=== PATIENT | female | born 1970 | race Caucasian/White ===

== ENCOUNTER 2021-01-03 22:44 | Emergency (ER) | payer OTHER, SELFPAY ==
[2021-01-03 22:52] VITALS: PULSE 63; RESP 18; TEMP 36.4; O2SAT 96; BMI 43.2
[2021-01-03 23:11] LABS: Appearance Urine HAZY; Color Urine DK YELLOW; Glucose Urine UA 100 MG/DL (NEG); Leukocyte Esterase Urine 1+ (NEG); Nitrite Urine POS (NEG); UACC Culture Trigger YES; Urine Blood 3+ (NEG); Urine Ketones NEG (NEG); Urine Protein 2+ MG/DL (NEG-TRACE)
--- NOTE | 2021-01-03 23:17 | ED.FEMALEGU ---
HPI - Female Genitourinary General Chief complaint: Urogenital-Female Stated complaint: uti Time Seen by Provider: 01/03/21 23:17 Source: patient Mode of arrival: ambulatory Limitations: no limitations History of Present Illness HPI Narrative: 50-year-old female came in for evaluation of possible UTI. Patient been having dysuria, frequency urination for few hours, no fever, no chills, no abdominal or back pain. Related Data Previous Rx's Medication Instructions Recorded nitrofurantoin 100 mg PO Q12H 7 Days #14 cap 01/03/21 monohydrate/macrocrystals 100 mg capsule (Macrobid) phenazopyridine 200 mg tablet 200 mg PO TID #6 tab 01/03/21 (Pyridium) Allergies Allergy/AdvReac Type Severity Reaction Status Date / Time No Known Allergies Allergy Verified 01/03/21 22:58 [No Known Allergies*] Review of Systems Review of Systems: all other systems are reviewed and are negative Constitutional: Reports as per HPI and Reports no additional constitutional complaints Eyes: Reports as per HPI and Reports no additional eye complaints Reports system reviewed and no additional complaints, except as documented Cardiovascular: Reports as per HPI and Reports no additional cardiovascular complaints Respiratory: Reports as per HPI and Reports no additional respiratory complaints Gastrointestinal: Reports as per HPI and Reports no additional gastrointestinal complaints Genitourinary: Reports no additional female genitourinary complaints Musculoskeletal: Reports no additional musculoskeletal complaints Skin/Breast: Reports system reviewed and no additional complaints, except as docu Psychiatric: Reports no additional psychiatric complaints Endocrine: Reports no additional endocrine complaints Hematologic/Lymphatic: Reports no additional hematologic/lymphatic complaints Allergic/Immunologic: Reports no additional allergic/immunologic complaints Reports system reviewed and no additional complaints, except as documented and Reports Abnormal speech present [facility] Social History Social History Advance Directives: No Patient : No Physical Exam Vital Signs: Vital Signs: Last Vital Signs Temp 97.8 F 01/03/21 23:21 Pulse 68 01/03/21 23:21 Resp 20 01/03/21 23:21 BP 176/89 H 01/03/21 23:21 Pulse Ox 97 01/03/21 23:21 Body Mass Index 43.2 vital signs have been reviewed as appeared to be correct. Blood pressure normal. Heart rate normal. Respiration rate normal. Temperature normal. Oxygen saturation normal. Appearance: Alert. Oriented X3. No acute distress. Head: Normal external exam. Normocephalic. Atraumatic. No Núñez signs noted. No raccoon eyes noted Eyes: PERRLA. EOMI. Conjunctiva and sclera normal. Eyelids normal. ENT: TM's Normal. Pharynx normal. Uvula midline. Moist mucous membranes. No trismus noted. No drooling noted. No muffled voice noted. Neck: Normal inspection. Neck supple. FROM. No adenopathy. Thyroid Normal. No meningeal signs. No neck mass noted. CVS: Normal heart rate and rhythm. Heart sound normal. No murmurs noted. Pulses normal throughout. Respiratory: No respiratory distress. Painless inspiration. Breath sounds normal. No wheezes/rales/rhonchi noted. Chest nontender. No accessory muscle usage noted or decreased air movement noted. Abdomen: Soft and nontender. Bowel sounds normal in all 4 quadrants. No distention noted. No organomegaly noted. No visible injury noted. Back: No CVA tenderness. Full range of motion noted. Skin: Skin warm and dry. Normal skin color. Normal skin turgor. No rashes/lesions/lacerations noted. Extremities: No lower extremity edema. Extremities exhibit normal range of motion. Extremities nontender. Neuro: Oriented X 3. Cranial nerve exam: II-XII are grossly intact No motor deficit. No sensory deficit. Reflexes normal. Course Course Course Narrative: assessment and plan. UTI, with no complication. Will start the patient on a, encouraged to drink plenty of fluids, 1 dose of Diflucan because the patient is susceptible for yeast infection with antibiotic, Pyridium. MDM - Female Genitourinary Lab Data Attestation: I reviewed the patient's lab results. Labs: Lab Results 01/03/21 Range/Units 23:03 Urine Color DK YELLOW Urine Appearance HAZY Urine pH 6.0 (5.0-8.0) Ur Specific [place] 1.010 (1.005-1.025) Urine Protein 2+ H (NEG-TRACE) MG/DL Urine Glucose (UA) 100 H (NEG) MG/DL Urine Ketones NEG (NEG) MG/DL Urine Blood 3+ H (NEG) Urine Nitrite POS H (NEG) Ur Leukocyte Esterase 1+ H (NEG) Urine RBC 15-29 H (0) /HPF Urine WBC 5-9 H (0-4) /HPF Ur Squamous Epith Cells 1+ /LPF Ur Renal Epithelial Cell TRACE /LPF Urine Bacteria TRACE /LPF Urine Mucus 1+ /LPF Discharge Plan Discharge Clinical Impression: Urinary tract infection Patient Disposition: Home, Self-Care Instructions: Urinary Tract Infection in Women (ED) Additional Instructions: drink plenty fluids Prescriptions: New nitrofurantoin monohyd/m-cryst [Macrobid] 100 mg capsule 100 mg PO Q12H 7 Days Qty: 14 RF: 0 phenazopyridine [Pyridium] 200 mg tablet 200 mg PO TID Qty: 6 RF: 0 Referrals: Tenisha Lofton NP [Primary Care Provider] - 2 days
[2021-01-03 23:19] LABS: Mucus Urine 1+ /LPF; Renal Epithelial Cells Urine TRACE /LPF; Squamous Epithelial Cell Urine 1+ /LPF
[2021-01-03 23:20] LABS: Bacteria Urine TRACE /LPF
[2021-01-03 23:21] VITALS: BP 176/89; PULSE 68; RESP 20; TEMP 36.6; O2SAT 97
[2021-01-03] MEDS: Fluconazole 150 MG TABLET PO (23:47)
[2021-01-03] MEDS: Phenazopyridine HCL 200 MG TABLET PO (23:47)
[2021-01-03] MEDS: Nitrofurantoin Monohyd/M-Cryst 100 MG CAPSULE PO (23:47)
== END 2021-01-03 23:58 | disposition home or self-care (01) ==
PROVIDERS: Emergency Provider Emergency Medicine; PCP Registered Nurse
DX: N39.0 Urinary tract infection, site not specified (principal)
CPT/HCPCS: 81001; 87086; 87088; 87186; 99283; 99284

== ENCOUNTER 2021-07-06 19:23 | Emergency (ER) | payer OTHER, SELFPAY ==
[2021-07-06 20:11] VITALS: BP 166/98; PULSE 67; RESP 20; TEMP 36; O2SAT 99; BMI 43.2
[2021-07-06 20:11] LABS: Appearance Urine CLEAR; Color Urine YELLOW; Glucose Urine UA NEG (NEG); Leukocyte Esterase Urine 1+ (NEG); Nitrite Urine POS (NEG); PH 5.5 (5.0-8.0); Specific Gravity - Urine <= 1.005 (1.005-1.025); UACC Culture Trigger YES; Urine Blood 1+ (NEG); Urine Ketones NEG (NEG); Urine Protein NEG (NEG-TRACE)
[2021-07-06 20:20] LABS: Bacteria Urine 1+ /LPF; RBC Urine 0-2 /HPF (0); Squamous Epithelial Cell Urine 1+ /LPF; WBC Urine 0-2 /HPF (0-4)
--- NOTE | 2021-07-06 21:55 | ED_ITS ---
HPI - Female Genitourinary General Chief complaint: Urogenital-Female Stated complaint: UTI Source: patient Mode of arrival: ambulatory Limitations: no limitations History of Present Illness HPI Narrative: 51-year-old female presents with dysuria and frequency that started about 13:00 today. Patient does have significant bladder spasms and has been treated by a specialist in the past. She did take some diazepam earlier today with poor effect. Patient does not report any vaginal discharge, fevers, chills or any other concerning symptoms. MD elicited complaint: dysuria, UTI and difficulty urinating Pertinent past history: recurrent UTIs Onset (ago): day(s) (1) Location of symptoms: urethra Severity: moderate Female Urogenital Radiation: Non-Radiating Severity scale (1-10): 8 Quality of pain: burning Consistency: intermittent Vaginal discharge: none Vaginal bleeding: none Urinary symptoms: Dysuria, Urgency and Frequency Exacerbating factors: urination Relieving factors: none Associated symptoms: denies other symptoms Treatment prior to arrival: other (Benzo diazepam) Sexual activity: Yes Related Data Previous Rx's Medication Instructions Recorded nitrofurantoin 100 mg PO Q12H 7 Days #14 cap 01/03/21 monohydrate/macrocrystals 100 mg capsule (Macrobid) phenazopyridine 200 mg tablet 200 mg PO TID #6 tab 01/03/21 (Pyridium) nitrofurantoin 100 mg PO Q12H 7 Days #14 cap 07/06/21 monohydrate/macrocrystals 100 mg capsule (Macrobid) phenazopyridine 200 mg tablet 200 mg PO TID PRN #10 tab 07/06/21 (Pyridium) Allergies Allergy/AdvReac Type Severity Reaction Status Date / Time No Known Allergies Allergy Verified 01/03/21 22:58 [No Known Allergies*] Review of Systems Review of Systems: Constitutional: No Fever, No Chills ENT/Mouth: No Ear Pain, No Hoarseness, No sore throat Eyes: No Eye Pain, No Swelling, No Redness, No Foreign Body Cardiovascular: No Chest Pain, No SOB Respiratory: No Cough, No Dyspnea Gastrointestinal: No Nausea, No Vomiting, No Diarrhea, No abdominal Pain Genitourinary: Positive Dysuria, positive frequency, No Hematuria Musculoskeletal: No joint pain, No Myalgias, No Joint Swelling Skin: No Skin lacerations, No rash Neuro: No Weakness, No Numbness, No Paresthesias, No Loss of Consciousness, No Dizziness, No Headache Psych: No Anxiety/Panic, No Depression Heme/Lymph: no easy bruising, no Lymphadenopathy Endocrine: No Polyuria, No Polydipsia Yes all other systems are reviewed and are negative PEND[facility] S[facility] TO [facility] Past Medical History Attestation statement: The following information was validated with the patient. Source: old records reviewed Social History Social History Advance Directives: No Advance Directives Information Provided: Yes Physical Exam Vital Signs: Vital Signs: Last Vital Signs Temp 96.8 F 07/06/21 20:11 Pulse 67 07/06/21 20:11 Resp 20 07/06/21 20:11 BP 166/98 H 07/06/21 20:11 Pulse Ox 99 07/06/21 20:11 BMI result Body Mass Index 43.2 Appearance: Alert. Oriented X3. No acute distress. Eyes: Pupils equal, round and reactive to light. ENT: Pharynx normal. Neck: Normal inspection. Neck supple. CVS: Normal heart rate and rhythm. Pulses normal. Respiratory: No respiratory distress. Breath sounds normal. Abdomen: Soft and nontender. Skin: Skin warm and dry. Normal skin color. Normal skin turgor. Extremities: No lower extremity edema. Gait well-balanced well coordinated. Neuro: No motor deficit. No sensory deficit. Cranial nerves 2-12 intact. Course Course Course Narrative: 51-year-old female presents with urinary symptoms for approximately 1 day. Patient appears anxious and is tearful and states that she has been in the bathroom all day. She does have a history of recurrent UTIs with significant bladder spasms. She was seen by a specialist and was treated with benzo diazepam for bladder spasms. She was treated back in December with Macrobid with good effect. Patient is afebrile, appears nontoxic, and has vital signs that are stable and within normal limits. Urinalysis indicates UTI, will treat with Macrobid, Pyridium and give 1 dose of Valium 2 mg p.o. prior to her discharge. Patient verbalized understanding of and agrees to plan of care to discharge home. Verbalized understanding of signs and symptoms indicating need for emergent intervention MDM - Female Genitourinary Differential Diagnosis Differential diagnosis: Likely urinary tract infection, cervicitis and cystitis Medical Records Attestation: I reviewed the patient's medical records. Lab Data Attestation: I reviewed the patient's lab results. Labs: Lab Results 07/06/21 Range/Units 20:05 Urine Color YELLOW Urine Appearance CLEAR Urine pH 5.5 (5.0-8.0) Ur Specific [place] <= 1.005 (1.005-1.025) Urine Protein NEG (NEG-TRACE) MG/DL Urine Glucose (UA) NEG (NEG) MG/DL Urine Ketones NEG (NEG) MG/DL Urine Blood 1+ H (NEG) Urine Nitrite POS H (NEG) Ur Leukocyte Esterase 1+ H (NEG) Urine RBC 0-2 (0) /HPF Urine WBC 0-2 (0-4) /HPF Ur Squamous Epith Cells 1+ /LPF Urine Bacteria 1+ /LPF Discharge Plan Discharge Clinical Impression: Urinary tract infection Patient Disposition: Home, Self-Care Instructions: Acute Urinary Retention in Women (ED) Additional Instructions: You were evaluated for urinary symptoms. Urinalysis is positive for UTI. Please take Macrobid 100 mg every 12 hours for the next 7 days. Take Pyridium 200 mg every 8 hours as needed for bladder pain and spasms. This medication will turn your urine bright orange. This is a normal side effect of this medication. Drink plenty of fluids. Follow-up with primary care physician. Thank you for choosing this emergency department for evaluation. Please follow-up with primary care physician as needed. Return to the emergency department for any new, concerning, or worsening symptoms. Prescriptions: New nitrofurantoin monohyd/m-cryst [Macrobid] 100 mg capsule 100 mg PO Q12H 7 Days Qty: 14 0RF Rx Instructions: must administer with a meal/food phenazopyridine [Pyridium] 200 mg tablet 200 mg PO TID PRN (Reason: pain) Qty: 10 0RF No Action nitrofurantoin monohyd/m-cryst [Macrobid] 100 mg capsule 100 mg PO Q12H 7 Days Qty: 14 0RF Rx Instructions: must administer with a meal/food phenazopyridine [Pyridium] 200 mg tablet 200 mg PO TID Qty: 6 0RF Interventions: ED Discharge Assessment Last Done: 07/06/21 22:46 Discharge Date/Time: 07/06/21 22:48
[2021-07-06] MEDS: diazePAM 2 MG TABLET PO (22:34)
[2021-07-06] MEDS: Phenazopyridine HCL 200 MG TABLET PO (22:34)
[2021-07-06] MEDS: Nitrofurantoin Monohyd/M-Cryst 100 MG CAPSULE PO (22:34)
== END 2021-07-06 22:48 | disposition home or self-care (01) ==
PROVIDERS: Emergency Provider Internal Medicine; PCP Registered Nurse
DX: N39.0 Urinary tract infection, site not specified (principal); N32.89 Other specified disorders of bladder; Z87.440 Personal history of urinary (tract) infections
CPT/HCPCS: 81001; 87086; 87088; 87186; 99283

== ENCOUNTER 2021-08-05 16:16 | Emergency (ER) | payer OTHER, SELFPAY ==
[2021-08-05 16:23] VITALS: BP 180/89; PULSE 79; RESP 16; TEMP 36.4; O2SAT 99; BMI 43.2
[2021-08-05 16:44] LABS: Appearance Urine CLEAR; Color Urine DK YELLOW; Glucose Urine UA 100 MG/DL (NEG); Leukocyte Esterase Urine 1+ (NEG); Nitrite Urine POS (NEG); Specific Gravity - Urine <= 1.005 (1.005-1.025); UACC Culture Trigger YES; Urine Blood TRACE (NEG); Urine Ketones NEG (NEG); Urine Protein TRACE MG/DL (NEG-TRACE)
[2021-08-05 16:50] LABS: Bacteria Urine 1+ /LPF; RBC Urine 0 /HPF (0); Squamous Epithelial Cell Urine 1+ /LPF; UACC CULT YES; WBC Urine 0-2 /HPF (0-4)
--- NOTE | 2021-08-05 18:45 | ED.FEMALEGU ---
HPI - Female Genitourinary General Chief complaint: Urogenital-Female Stated complaint: UTI Time Seen by Provider: 08/05/21 18:35 Source: patient Mode of arrival: ambulatory History of Present Illness HPI Narrative: 51-year-old female with a past medical history of bladder spasms, UTI recently presenting to the ED complaining of dysuria and urinary frequency since this morning. Patient was seen and treated in the ED on 07/06 for similar symptoms, finished course of Macrobid with symptomatic improvement/relief. Denies fever, chills, nausea, vomiting, abdominal pain, flank pain MD elicited complaint: dysuria and UTI Related Data Previous Rx's Medication Instructions Recorded nitrofurantoin 100 mg PO Q12H 7 days #14 caps 01/03/21 monohydrate/macrocrystals 100 mg capsule (Macrobid) phenazopyridine 200 mg tablet 200 mg PO TID 6 doses #6 tabs 01/03/21 (Pyridium) nitrofurantoin 100 mg PO Q12H 7 days #14 caps 07/06/21 monohydrate/macrocrystals 100 mg capsule (Macrobid) phenazopyridine 200 mg tablet 200 mg PO TID PRN pain #10 tabs 07/06/21 (Pyridium) cefuroxime axetil 250 mg tablet 250 mg PO BID 7 days #14 tabs 08/05/21 phenazopyridine 200 mg tablet 200 mg PO TID PRN pain 6 doses #5 08/05/21 (Pyridium) tabs Allergies Allergy/AdvReac Type Severity Reaction Status Date / Time No Known Allergies Allergy Verified 01/03/21 22:58 [No Known Allergies*] Review of Systems Review of Systems: Constitutional: No Weight loss, No Fever, No Chills ENT/Mouth: No Ear Pain, No Nasal Congestion, No Sinus Pain, No Hoarseness, No sore throat, No Rhinorrhea, No Swallowing Difficulty Cardiovascular: No Chest Pain, No SOB Respiratory: No Cough, No Sputum, No Wheezing Gastrointestinal: No Nausea, No Vomiting, No Diarrhea, No Constipation, No Abdominal pain Genitourinary: + Dysuria, + Urinary Frequency, No Hematuria, No Urinary Incontinence/retention, No Urgency, No Flank Pain Musculoskeletal: No joint pain, No Myalgias, No Joint Swelling Skin: No Skin Lesions, No rash Neuro: No Weakness, No Numbness, No Paresthesias Yes all other systems are reviewed and are negative [facility] Past Medical History Attestation statement: The following information was validated with the patient. Social History Social History Advance Directives: No Advance Directives Information Provided: No Physical Exam Vital Signs: Vital Signs: Last Vital Signs Temp 97.5 F 08/05/21 16:23 Pulse 79 08/05/21 16:23 Resp 16 08/05/21 16:23 BP 180/89 H 08/05/21 16:23 Pulse Ox 99 08/05/21 16:23 O2 Del Method 08/05/21 16:23 BMI result Body Mass Index 43.2 Const: General: cooperative, healthy appearing and no acute distress Orientation/consciousness: patient oriented x3 Limitations: no limitations HEENT: Head: Yes normal to inspection and Yes atraumatic Ears: hearing grossly normal bilaterally General nose exam: Normal external nose present Face and sinus: Yes normal facial exam Eyes: General: appearance normal, both eyes and all related structures EOM: EOMs intact bilaterally Neck: Neck: Yes normal visual inspection and Yes no meningeal signs Resp: Effort & Inspection: normal respiratory effort and no respiratory distress Cardio: Rate: regular rate Heart sounds: S1 normal heart sound present and S2 normal heart sound present GI: Inspection: Yes normal to inspection Palpation (GI): Soft to palpation, nontender, no guarding and not rigid : General: Yes no CVA tenderness Back/Spine/Pelvis: Back: no CVA tenderness Skin: Rashes: no rashes Wounds: no wounds Neuro: General: patient oriented x3, tone normal and no meningeal signs Gait exam (Neuro): Normal gait present Extrem: General: Yes normal to inspection Course Course Course Narrative: -UA with positive nitrates and leuk esterase. >Due to patient's symptoms will treat for UTI, had good relief with Macrobid in the past however due to recent treatment will try Ceftin 250 b.i.d. Patient received dose of Ceftin and pyridium in the ED > discussed with patient she needs to follow-up with her urogynecologist MDM - Female Genitourinary MDM Narrative Medical decision making narrative: 51-year-old female with a past medical history of bladder spasms, UTI recently presenting to the ED complaining of dysuria and urinary frequency since this morning. On exam vital signs stable, NAD, abdomen soft/nontender, no CVA tenderness. Concern for UTI. Low suspicion for pyelonephritis/renal stone or intra-abdominal pathology Plan: UA Differential Diagnosis Differential diagnosis: Likely urinary tract infection Medical Records Attestation: I reviewed the patient's medical records. Lab Data Attestation: I reviewed the patient's lab results. Labs: Lab Results 08/05/21 Range/Units 16:35 Urine Color DK YELLOW Urine Appearance CLEAR Urine pH 5.0 (5.0-8.0) Ur Specific [place] <= 1.005 (1.005-1.025) Urine Protein TRACE (NEG-TRACE) MG/DL Urine Glucose (UA) 100 H (NEG) MG/DL Urine Ketones NEG (NEG) MG/DL Urine Blood TRACE (NEG) Urine Nitrite POS H (NEG) Ur Leukocyte Esterase 1+ H (NEG) Urine RBC 0 (0) /HPF Urine WBC 0-2 (0-4) /HPF Ur Squamous Epith Cells 1+ /LPF Urine Bacteria 1+ /LPF Discharge Plan Discharge Clinical Impression: Urinary tract infection Patient Disposition: Home, Self-Care Instructions: Urinary Tract Infection in Women (ED) Additional Instructions: You have a urinary tract infection. Ceftin is an antibiotic please take as prescribed. Pyridium will help with urinary discomfort. Please follow-up with your urologist. If symptoms persist or worsen you develop back pain, fever, chills, abdominal pain or nausea return to the ED Prescriptions: New phenazopyridine [Pyridium] 200 mg tablet 200 mg PO TID PRN (Reason: pain) Qty: 5 0RF cefuroxime axetil 250 mg tablet 250 mg PO BID 7 Days Qty: 14 0RF No Action nitrofurantoin monohyd/m-cryst [Macrobid] 100 mg capsule 100 mg PO Q12H 7 Days Qty: 14 0RF Rx Instructions: must administer with a meal/food phenazopyridine [Pyridium] 200 mg tablet 200 mg PO TID Qty: 6 0RF nitrofurantoin monohyd/m-cryst [Macrobid] 100 mg capsule 100 mg PO Q12H 7 Days Qty: 14 0RF Rx Instructions: must administer with a meal/food phenazopyridine [Pyridium] 200 mg tablet 200 mg PO TID PRN (Reason: pain) Qty: 10 0RF Referrals: Riley Magallanes MD [Physician] - Tenisha Lofton NP [Primary Care Provider] -
[2021-08-05] MEDS: Phenazopyridine HCL 200 MG TABLET PO (18:57)
== END 2021-08-05 19:19 | disposition home or self-care (01) ==
PROVIDERS: Emergency Provider Internal Medicine; PCP Registered Nurse
DX: N39.0 Urinary tract infection, site not specified (principal); Z79.899 Other long term (current) drug therapy; Z20.822 Contact with and (suspected) exposure to COVID-19
CPT/HCPCS: 81001; 87086; 87088; 87186; 99283

== ENCOUNTER 2021-11-26 13:36 | Outpatient (REF) | payer OTHER, SELFPAY ==
[2021-11-26 14:04] LABS: COVID-19 Test Negative (Negative)
== END 2021-11-26 13:37 | disposition home or self-care (01) ==
LOC: HO.LAB 13:36
PROVIDERS: Visit Provider Internal Medicine
DX: Z20.822 Contact with and (suspected) exposure to COVID-19 (principal)
CPT/HCPCS: 87635; C9803

== ENCOUNTER 2024-01-22 04:33 | Emergency (ER) | payer OTHER, SELFPAY ==
[2024-01-22 04:34] VITALS: BP 178/90; PULSE 66; RESP 20; TEMP 36.6; O2SAT 97; BMI 49.2
[2024-01-22 05:56] LABS: Appearance Urine Cloudy; Color Urine Orange; Glucose Urine UA Negative (Negative); Leukocyte Esterase Urine Large (3+) (Negative); Nitrite Urine Positive (Negative); PH 5.5 (5.0-9.0); UMIC TRIGGER UACC YES; Urine Blood Moderate (2+) (Negative); Urine Ketones Negative (Negative); Urine Protein Trace mg/dL (Neg-Trace)
[2024-01-22 05:57] LABS: Bacteria Urine Trace (None Seen); Hyaline Casts Urine 0-2 /LPF (0-2); UACC Culture Trigger YES; WBC Urine >50 /HPF (0-5)
[2024-01-22 06:12] VITALS: BP 183/61; PULSE 83; RESP 16; TEMP 36.4; O2SAT 96
--- NOTE | 2024-01-22 07:07 | ED_ITS ---
HPI - Female Genitourinary General Chief complaint: Urogenital-Female Stated complaint: UTI Time Seen by Provider: 01/22/24 07:07 Source: patient Mode of arrival: ambulatory Limitations: no limitations History of Present Illness ED Provider: Sydney Kwong PA-C HPI Narrative: Patient is a 53 year old assigned female at with a history of frequent UTIs presenting to the emergency department today with bladder spasm and increased urinary frequency. Patient states that since 314 she has felt like she needed to urinate more and is having bladder spasms. Patient denies any dizziness, lightheadedness, nausea, vomiting, fever, chills, blurry vision, double vision, loss of vision, chest pain, difficulty breathing, shortness of breath, back pain, night sweats, pain with urination, blood in her urine or stool, syncope or a near syncopal episode, recent trauma or falls, bowel incontinence, bladder incontinence, or any other complaints at this time. Exacerbating factors: none Relieving factors: none Associated symptoms: abdominal pain (bladder spasms) Related Data Previous Rx's ?Medication ?Instructions ?Recorded nitrofurantoin 100 mg PO Q12H 7 days #14 caps 01/03/21 monohydrate/macrocrystals 100 mg capsule (Macrobid) phenazopyridine 200 mg tablet 200 mg PO TID 6 doses #6 tabs 01/03/21 (Pyridium) nitrofurantoin 100 mg PO Q12H 7 days #14 caps 07/06/21 monohydrate/macrocrystals 100 mg capsule (Macrobid) phenazopyridine 200 mg tablet 200 mg PO TID PRN pain #10 tabs 07/06/21 (Pyridium) cefuroxime axetil 250 mg tablet 250 mg PO BID 7 days #14 tabs 08/05/21 phenazopyridine 200 mg tablet 200 mg PO TID PRN pain 6 doses #5 08/05/21 (Pyridium) tabs cefuroxime axetil 250 mg tablet 250 mg PO BID 7 days #14 tabs 01/22/24 oxybutynin chloride 5 mg tablet 5 mg PO Q6-8H PRN bladder spasms 01/22/24 #7 tabs Allergies Allergy/AdvReac Type Severity Reaction Status Date / Time No Known Allergies Allergy Verified 01/22/24 04:38 [No Known Allergies*] Review of Systems 2 Constitutional: Constitutional: Reports no additional constitutional complaints, Denies chills, Denies fever(s) and Denies night sweats Eyes: Eyes: Reports no additional eye complaints, Denies blurry vision, Denies change in vision, Denies diplopia, Denies eye discharge, Denies loss of vision and Denies eye pain ENT: Denies dizziness Cardiovascular: Cardiovascular: Reports no additional cardiovascular complaints, Denies chest pain, Denies lightheadedness, Denies Loss of Consciousness and Denies dyspnea Respiratory: Respiratory: Reports no additional respiratory complaints and Denies dyspnea Gastrointestinal: Gastrointestinal: Reports no additional gastrointestinal complaints, Reports abdominal pain (bladder spasms), Denies melena, Denies hematochezia, Denies change in bowel habits and Denies change in stool character Genitourinary: Genitourinary: Denies hematuria, Denies urinary frequency, Denies dysuria, Denies urinary incontinence, Denies urinary hesitancy and Reports urinary urgency Musculoskeletal: Musculoskeletal: Reports no additional musculoskeletal complaints, Denies numbness and Denies tingling Neurologic: Denies dizziness, Denies loss of vision, Denies numbness and Denies tingling Psychiatric: Psychiatric: Reports no additional psychiatric complaints Endocrine: Endocrine: Reports no additional endocrine complaints Hematologic/Lymphatic: Hematologic/Lymphatic: Reports no additional hematologic/lymphatic complaints Allergic/Immunologic: Allergic/Immunologic: Reports no additional allergic/immunologic complaints PMFSH Past Medical History Attestation statement: The following information was validated with the patient. Source: old records reviewed and nursing notes reviewed Social History Social History Advance Directives: No Advance Directives Information Provided: Yes Do you have a plan to hurt others: No Plan Physical Exam 2 Vital Signs: Vital Signs: Last Vital Signs Temp 97.6 F 01/22/24 06:12 Pulse 83 01/22/24 06:12 Resp 16 01/22/24 06:12 BP 183/61 H 01/22/24 06:12 Pulse Ox 96 01/22/24 06:12 O2 Del Method Room Air 01/22/24 06:12 BMI result Body Mass Index 49.2 Const: General: cooperative, no acute distress, alert and awake Nutritional Appearance: well nourished Orientation/consciousness: patient oriented x3 Limitations: no limitations HEENT: Head: Yes normal to inspection and Yes atraumatic Ears: hearing grossly normal bilaterally and external ears normal General nose exam: Normal external nose present, no nasal discharge noted and no epistaxis Face and sinus: Yes normal facial exam, No abrasion and No laceration Mouth: Normal oral and palatal mucosa present, no drooling and no muffled voice Eyes: General: appearance normal, both eyes and all related structures P eriorbital: periorbital findings normal Eyelids: Yes eyelids normal C onjunctivae: conjunctivae normal Pupils: Equal, round and reactive pupils present EOM: EOMs intact bilaterally Neck: Neck: Yes normal visual inspection, Yes full ROM and Yes no lymphadenopathy Chest: Chest palpation & inspection: normal inspection of the chest Resp: Effort & Inspection: normal respiratory effort and able to speak in complete sentences GI: Inspection: Yes normal to inspection Neuro: General: patient oriented x3 and moves all extremities Cranial nerves: Yes Equal, round and reactive pupils present Cognition (Neuro): n ormal cognition Extrem: General: Yes normal to inspection, Yes full ROM and Yes capillary refill normal Psych: Appearance: grossly normal Mental Status: mental status grossly normal Affect: normal affect Attitude: cooperative Thought process: N ormal thought process present Thought content: Normal thought content present Insight: Good insight present (Psych) Medications Administered Discontinued Medications Generic Name Dose Route Start Last Admin Trade Name Freq PRN Reason Stop Dose Admin Cefuroxime Axetil 500 mg 01/22/24 06:41 01/22/24 07:35 Cefuroxime Axetil 500 Mg Tablet PO 01/22/24 06:42 500 mg ONCE ONE Administration Sodium Chloride 1,000 mls @ 999 mls/hr 01/22/24 07:30 01/22/24 08:10 Ns IV 01/22/24 08:30 999 mls/hr .Q1H1M RYAN Administration Oxybutynin Chloride 10 mg 01/22/24 07:20 01/22/24 07:35 Oxybutynin Chloride Er 5 Mg Tab.Er.24 PO 01/22/24 07:21 10 mg ONCE ONE Administration Medical Decision Making Medical Decision Making [facility] Narrative: Patient is a 53 year old assigned female at with a history of frequent UTIs presenting to the emergency department today with bladder spasm and increased urinary frequency. Patient's physical exam was unremarkable. Patient's blood work was unremarkable. Patient's urine showed an acute UTI. I explained my physical exam findings as well as all test results to the patient. I answered all questions asked by the patient. I stressed the importance of the patient taking her medication as directed (either prescribed or as the over the counter packaging recommends). 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 I stressed the importance of the patient returning to the emergency department immediately if her symptoms were to worsen or if she were to develop any dizziness, shortness of breath, difficulty breathing, chest pain, blurry vision, loss of vision, nausea, vomiting, abdominal pain, fever, chills, back pain, or any other complaints. Patient verbalized agreement and understanding with this treatment plan and discharge. Differential Diagnosis Differential Diagnoses: The differential diagnosis associated with the presentation includes UTI Bladder spasms Admission/Observation Consideration of admission/observation: Escalation of care including admission/observation considered Patient would have been admitted to the hospital had her work up had any findings where hospital admission was appropriate and her clinical presentation warranted hospital admission. Lab Data [facility] Lab Attestation statement: I reviewed the patient's lab results. My interpretation of these results are in the [facility] Rationale portion of this note. 01/22/24 07:44 01/22/24 07:44 Labs: Lab Results 01/22/24 01/22/24 Range/Units 05:47 07:44 WBC 5.3 (4.8-10.8) X10*3/uL RBC 4.67 (4.20-5.50) X10*6/uL Hgb 12.4 (12.0-16.0) g/dl Hct 37.0 (37.0-47.0) % MCV 79.2 L (80.0-98.0) fL MCH 26.6 L (27.0-33.0) pg MCHC 33.5 (31.0-35.0) g/dl RDW 13.6 (11.0-16.0) % Plt Count 202 (160-400) X10*3/uL MPV 9.6 (9.4-12.3) fL Immature Gran % (Auto) 0.2 (0.0-0.4) % Neut % (Auto) 72.2 (45-73) % Lymph % (Auto) 15.3 L (20-40) % [place] % (Auto) 8.9 (2-11) % Eos % (Auto) 2.3 (0-4) % Baso % (Auto) 1.1 (0-2) % Lymph # (Auto) 0.8 L (1.2-4.9) X10*3/uL [place] # (Auto) 0.5 (0.1-1.2) X10*3/uL Eos # (Auto) 0.1 (0.0-0.4) X10*3/uL Baso # (Auto) 0.1 (0.0-0.2) X10*3/uL Abs Immat Gran (auto) 0.01 (0.00-0.03) X10*3/uL Absolute Neuts (auto) 3.8 (2.0-8.3) x10*3/uL Absolute Nucleated RBC 0.000 (0.0-0.012) X10*3/uL Nucleated RBC % (auto) 0.0 (0.0-0.2) /100WBC Sodium 139 (135-145) mmol/L Potassium 3.3 (3.3-5.1) mmol/L Chloride 105 (96-108) mmol/L Carbon Dioxide 24 (22-29) mmol/L Anion Gap 13 (12-20) BUN 10 (9-16) mg/dL Creatinine 0.98 (0.5-1.4) mg/dL Estim Creat Clear Calc 89.8 Estimated GFR 59 Random Glucose 102 (60-115) mg/dL Calcium 9.6 (8.4-10.2) mg/dL Magnesium 2.0 (1.6-2.6) mg/dL Total Bilirubin 0.8 (0.0-1.0) mg/dL AST 27 (5-31) U/L ALT 23 (0-31) U/L Alkaline Phosphatase 90 (39-117) U/L Total Protein 7.1 (6.5-8.0) g/dL Albumin 4.2 (3.5-5.0) g/dL Urine Color [place] A Urine Appearance Cloudy Urine pH 5.5 (5.0-9.0) Ur Specific [place] 1.010 (1.005-1.025) Urine Protein Trace (Neg-Trace) mg/dL Urine Glucose (UA) Negative (Negative) mg/dL Urine Ketones Negative (Negative) mg/dL Urine Blood Moderate (2+) H (Negative) Urine Nitrite Positive H (Negative) Ur Leukocyte Esterase Large (3+) H (Negative) Urine RBC 6-10 H (0-2) /HPF Urine WBC >50 H (0-5) /HPF Ur Squamous Epith Cells 3-5 (0-2) /HPF Urine Bacteria Trace (None Seen) Hyaline Casts 0-2 (0-2) /LPF Prescription Management I considered prescription management with: Antibiotic (patient prescribed an antibiotic for her UTI) Discharge Plan Discharge Clinical Impression: Urinary tract infection Patient Disposition: Home, Self-Care Instructions: Urinary Tract Infection in Women (DC) Additional Instructions: Take your medication as prescribed. 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 Return to the emergency department immediately if your symptoms worsen or if you develop any dizziness, shortness of breath, difficulty breathing, chest pain, blurry vision, loss of vision, nausea, vomiting, abdominal pain, fever, chills, back pain, or any other complaints. Prescriptions: New oxybutynin chloride 5 mg tablet 5 mg PO Q6-8H PRN (Reason: bladder spasms) Qty: 7 0RF cefuroxime axetil 250 mg tablet 250 mg PO BID 7 Days Qty: 14 0RF No Action nitrofurantoin monohyd/m-cryst [Macrobid] 100 mg capsule 100 mg PO Q12H 7 Days Qty: 14 0RF Rx Instructions: must administer with a meal/food phenazopyridine [Pyridium] 200 mg tablet 200 mg PO TID Qty: 6 0RF nitrofurantoin monohyd/m-cryst [Macrobid] 100 mg capsule 100 mg PO Q12H 7 Days Qty: 14 0RF Rx Instructions: must administer with a meal/food phenazopyridine [Pyridium] 200 mg tablet 200 mg PO TID PRN (Reason: pain) Qty: 10 0RF phenazopyridine [Pyridium] 200 mg tablet 200 mg PO TID PRN (Reason: pain) Qty: 5 0RF cefuroxime axetil 250 mg tablet 250 mg PO BID 7 Days Qty: 14 0RF Referrals: [facility] [Provider Group] (Call to establish and follow up with a urologist. ) Terrence Stapleton [Emergency Nurse] - Stand Alone Forms: Work/School Release Print Language: Somali
[2024-01-22] MEDS: oxyBUTYnin chloride ER 5 MG TAB.ER.24 10 MG PO (07:35)
[2024-01-22] MEDS: cefuroxime axetiL 500 MG TABLET PO (07:35)
[2024-01-22 07:48] LABS: MANUAL DIFF FLAG NO
[2024-01-22 07:55] LABS: Basophils Absolute Auto 0.1 X10*3/uL (0.0-0.2); Basophils Percent Auto 1.1 % (0-2); Eosinophils Absolute Auto 0.1 X10*3/uL (0.0-0.4); Eosinophils Percent Auto 2.3 % (0-4); Hemoglobin 12.4 g/dl (12.0-16.0); Imm Gran Abs Auto 0.01 X10*3/uL (0.00-0.03); Imm Gran Pct Auto 0.2 % (0.0-0.4); Lymphocytes Absolute Auto 0.8 X10*3/uL (1.2-4.9); Lymphocytes Percent Auto 15.3 % (20-40); Mean Corpuscular HGB Conc 33.5 g/dl (31.0-35.0); Mean Corpuscular Hemoglobin 26.6 pg (27.0-33.0); Mean Corpuscular Volume 79.2 fL (80.0-98.0); Mean Platelet Volume 9.6 fL (9.4-12.3); Monocytes Absolute Auto 0.5 X10*3/uL (0.1-1.2); Monocytes Percent Auto 8.9 % (2-11); Neutrophils Absolute Auto 3.8 x10*3/uL (2.0-8.3); Neutrophils Percent Auto 72.2 % (45-73); Platelet Count 202 X10*3/uL (160-400); Red Blood Count 4.67 X10*6/uL (4.20-5.50); Red Cell Distribution Width 13.6 % (11.0-16.0); White Blood Count 5.3 X10*3/uL (4.8-10.8)
[2024-01-22 08:03] LABS: Alanine Aminotransferase 23 U/L (0-31); Albumin Level 4.2 g/dL (3.5-5.0); Alkaline Phosphatase 90 U/L (39-117); Anion Gap 13 (12-20); Aspartate Amino Transferase 27 U/L (5-31); Bilirubin Total 0.8 mg/dL (0.0-1.0); Blood Urea Nitrogen 10 mg/dL (9-16); Calcium 9.6 mg/dL (8.4-10.2); Carbon Dioxide 24 mmol/L (22-29); Chloride 105 mmol/L (96-108); Creatinine Clr Calc Pharmacy 89.8; Estimated Glomerular Filt Rate 59; Glucose Random 102 mg/dL (60-115); Potassium 3.3 mmol/L (3.3-5.1); Sodium 139 mmol/L (135-145); Total Protein 7.1 g/dL (6.5-8.0)
[2024-01-22] MEDS: 0.9 % Sodium Chloride 1,000 ML 999 ML IV (08:10)
--- NOTE | 2024-01-22 08:10 | PC.NURSE ---
iv placed in RAC #[id number]
[2024-01-22 09:23] VITALS: BP 185/92; PULSE 75; RESP 16; TEMP 37.1; O2SAT 99
--- OUTSIDE RECORDS SUMMARY | 2024-01-27 22:36 | XMS_ITS | Data Portability ---
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 Plan of Treatment Reminders Order Date Submit Date Provider Last Modified By Organization Details Last Modified Time Details Appointments None recorded. Lab culture, urine 2022 023 BLY [facility], [address] [place] [address], [place], [address], 3 12:06:13 urinalysis, dipstick 2022 023 AMBROSE [facility], [address] [place] [address], [address], 3 16:42:42 glucose, fingerstick , blood 2022 023 _[facility], [address] [place] [address], [address], 3 13:04:52 Referral urogynecolo gist referral 2022 023 [email or web address] 26 Miguel Whaley MD, [address] [facility], [address], [place], [address], 3 07:38:52 Procedures None recorded. Surgeries None recorded. Imaging None recorded. Medication Orders Tessalon Perles 100 mg capsule 2022 023 AMBROSE [id number], [address] [place], [address], 3 12:08:08 prednisone 20 mg tablet 2022 023 [id number] [address] [place], [address], 3 12:08:04 albuterol sulfate HFA 90 mcg/actuati on aerosol inhaler 2022 023 [facility], [address] [place], [address], 3 12:07:58 cefuroxime axetil 500 mg tablet 2022 023 [id number] [place], [address], 3 13:04:52 Diflucan 150 mg tablet [address], [address] [place], [address], 3 13:04:52 Pyridium 200 mg tablet 2022 023 [address] [place], [address], 13:04:52 Patient TargetsNo targets recorded. Patient Instructions Encounter Date Encounter Id Patient Instructions Last Modified By Organization Details Last Modified Time 02/28/2022 [id number] Acute Sinusitis: Care Instructions [email or web address] Not available 02/28/2022 09:03:12 upper respirator y infection (cold): care instructions [email or web address] Not available 02/28/2022 09:03:21 03/20/2022 [id number] urinary tract infection in women information Not available 03/20/2022 13:04:52 You are going to be treated for a Urinary Tract Infection. I will send the results to your treating urogynocologist. I will also prescribe you Diflcan and Pyridium. Hold your omeprazole while taking that medication. The following are recommendations to help with your symptoms and recovery: 1. Drink Plenty of fluids - Stay hydrated 2. Finish full antibiotic course 3. I recommend starting a Probiotic - I recommend Florastor 4. If you take Azo - this will help the burning and urgency feeling - just be aware it will turn your urine bright yellow. I would not hesitate to be seen again if you develop: 1. Severe Back Pain 2. Abdominal Pain 3. Nausea and Vomiting 4. Vaginal Discharge or Bleeding 5. Fever > 101.0 You symptoms should improve within 72 hours for a typically UTI. If a urine culture was sent out to the lab for you we should get the results back within 4 days. This will be able to prove that your symptoms are caused by a UTI and it will also verify that the correct antibiotic was prescribed. Thank you for using [facility] - please don't hesistate to call our office if you have any questions or concerns. [email or web address] Not available 03/20/2022 13:01:38 Reason for Referral Urogynecologist Referral for Dysuria Referring Physician: Richa Santana, Urgent Care, Encounter Date: 03/20/2022 Results Created Date Observation Date Name Description Value Unit Range Abnormal Flag Note LastModifiedBy Organization Detail LastModifiedTime 03/20/1903/24/2022 URINE CULTU REFRANCISCO NE urine culture, routine FINAL REPORT abnormal Not Available [facility] ([facility]) [address] [facility], [place], [address], 03/24/2022 18:05:40 03/20/1903/24/2022 URINE CULTU RE ROUTI NE result 1 ESCHER ICHIA COLI abnormal Cefaz miki <=4 ug/mL Cefaz miki with an BARTOLOME <=16 predi cts susce ptibi lity to the oral agent s cefac lili, cefdi jess, cefpo doxim e, cefpr ozil, cefur oxime , cepha lexin , and lorac arbef when used for thera py of uncom plica henrik urina ry tract infec tions due to E. coli, Klebs iella pneum oniae , and Prote us mirab ilis. 10,00 0-25, 000 colon y formi ng units per mL Not Available [facility] ([facility]) [address] [facility], [place], [address], 03/24/2022 18:05:40 03/20/19 23 03/24/2022 URINE CULTU RE, ROUTI NE antimicrobia l susceptibili ty COMMEN T S = Susce ptibl e; I = Inter media te; R = Resis tant P = Posit koki; N = Negat koki MICS are expre ssed in micro grams per mL Antib iotic RSLT# 1 RSLT# 2 RSLT# 3 RSLT# 4 Amoxi cilli n/Cla vulan ic Acid S Ampic illin S Cefep sherin S Ceftr iaxon e S Cefur oxime S Cipro floxa carrie S Ertap enem S Genta micin S Imipe nem S Levof loxac in S Merop enem S Nitro furan toin S Piper acill in/Ta zobac dong S Tetra cycli ne S Tobra mycin S Trime thopr im/Infante lfa S Not Available [facility] ([facility]) [address] [facility], [place], [address], 03/24/2022 18:05:40 03/20/19 23 03/20/2022 urina lysis , dipst ick Unknown Analyte Normal = light yellow Not Available tiffany perry [address], [address], 03/20/2022 12:10:38 03/20/19 23 03/20/2022 urina lysis , dipst ick Unknown Analyte Other Not Available alejandra [address] [place], [address], 03/20/2022 12:10:38 03/20/19 23 03/20/2022 urina lysis , dipst ick Unknown Analyte Normal = clear Not Available tiffany perry [address] [place], [address], 03/20/2022 12:10:38 03/20/19 23 03/20/2022 urina lysis , dipst ick Unknown Analyte Clear Not Available alejandra [address], [place], [address], 03/20/2022 12:10:38 03/20/19 23 03/20/2022 urina lysis , dipst ick Unknown Analyte Normal = negati ve Not Available tiffany perry [address], [place], [address], 03/20/2022 12:10:38 03/20/19 23 03/20/2022 urina lysis , dipst ick Unknown Analyte 100 mg/dL Not Available tiffany perry [address], [place], [address], 03/20/2022 12:10:38 03/20/19 23 03/20/2022 urina lysis , dipst ick Unknown Analyte Normal = Negati ve Not Available tiffany perry [address], [place], [address], 03/20/2022 12:10:38 03/20/19 23 03/20/2022 urina lysis , dipst ick Unknown Analyte Negati ve Not Available tiffany perry [address], [place], [address], 03/20/2022 12:10:38 03/20/19 23 03/20/2022 urina lysis , dipst ick Unknown Analyte Normal = Negati ve Not Available tiffany perry [address], [place], [address], 03/20/2022 12:10:38 03/20/19 23 03/20/2022 urina lysis , dipst ick Unknown Analyte Negati ve Not Available tiffany perry [address], [place], [address], 03/20/2022 12:10:38 03/20/1903/20/2022 urina lysis , dipst ick Unknown Analyte Normal = 1.010, 1.015, 1.020 Not Available [facility] [address], [place], [address], 03/20/2022 12:10:38 03/20/19 23 03/20/2022 urina lysis , dipst ick Unknown Analyte <=1.00 5 Not Available [address] [address], [place], [address], 03/20/2022 12:10:38 03/20/19 23 03/20/2022 urina lysis , dipst ick Unknown Analyte Normal = Negati ve Not Available [address] [place] [address], [place], [address], 03/20/2022 12:10:38 03/20/19 23 03/20/2022 urina lysis , dipst ick Unknown Analyte Large Not Available [address] [place] [address], [place], [address], 03/20/2022 12:10:38 03/20/19 23 03/20/2022 urina lysis , dipst ick Unknown Analyte Normal = 6.5, 7.0, 7.5, 8.0 Not Available [address] [place] [address], [place], [address], 03/20/2022 12:10:38 03/20/19 23 03/20/2022 urina lysis , dipst ick Unknown Analyte 6.0 Not Available [address] [place] [address], [place], [address], 03/20/2022 12:10:38 03/20/19 23 03/20/2022 urina lysis , dipst ick Unknown Analyte Normal = Negati ve Not Available 2099tiffany perry [address], [place], [address], 03/20/2022 12:10:38 03/20/19 23 03/20/2022 urina lysis , dipst ick Unknown Analyte 100 mg/dL Not Available tiffany perry [address], [place], [address], 03/20/2022 12:10:38 03/20/19 23 03/20/2022 urina lysis , dipst ick Unknown Analyte Normal = 0.2, 1.0 Not Available [address]tiffany [address], [place], [address], 03/20/2022 12:10:38 03/20/19 23 03/20/2022 urina lysis , dipst ick Unknown Analyte 0.2 E.U./d L Not Available tiffany [address], [place], [address], 03/20/2022 12:10:38 03/20/19 23 03/20/2022 urina lysis , dipst ick Unknown Analyte Normal = Negati ve Not Available tiffany perry [address], [place], [address], 03/20/2022 12:10:38 03/20/19 23 03/20/2022 urina lysis , dipst ick Unknown Analyte Positi ve Not Available 2099tiffany perry [address], [place], [address], 03/20/2022 12:10:38 03/20/19 23 03/20/2022 urina lysis , dipst ick Unknown Analyte Normal = Negati ve Not Available tiffany [address], [place], [address], 03/20/2022 12:10:38 03/20/19 23 03/20/2022 urina lysis , dipst ick Unknown Analyte Trace Not Available [address] [place], [place] [address], [address], 03/20/2022 12:10:38 03/20/1903/20/2022 gluco se, finge rstic k, blood blood sugar - non fasting 96 mg/dL 80-140 = normal Not Available [address] [place] [address], [place], [address], 03/20/2022 13:01:20 03/20/19 23 03/20/2022 gluco se, finge rstic k, blood blood sugar - fasting mg/dL 80-125 = normal Not Available [address] [place] [address], [place], [address], 03/20/2022 13:01:20 Result Notes None recorded. Problems Name Problem SNOMED Code Status Onset Date Resolution Date Notes Provider Name and Address Organization Details Recorded Time Gastroesophage al reflux disease 999175879 Active 2022 JAIRON DEPINTO null, PA - [facility] 08:37:38 Problem Notes None recorded. Procedures Surgical History Date Name Laterality Status Provider Name and Address Organization Details Recorded Time 02/17/19 19 procedure on knee completed JAIRON DEPINTO PA - [facility] 02/28/2022 08:40:01 02/17/19 10 hysterectomy completed JAIRON DEPINTO PA - [facility] 02/28/2022 08:38:57 02/17/19 05 plantar fasciectomy completed JAIRON DEPINTO PA - [facility] 02/28/2022 08:38:50 Imaging Results None recorded. Procedure Notes None recorded. Medical Equipment None Reported. Allergies No known drug allergies Medications Name Sig Start Date Stop Date Status Note LastModified by Organization Details LastModified Time manuel 10%/diclo 5%/baclo 2%/cyclo 2%/bupiv hcl 2% ssls APPLY FOUR GRAMS TO THE AFFECTED AREA FOUR TIMES DAILY. APPLY FIRST, RUB IN WELL (RIGHT ELBOW) 02/28 completed Not Available Not Available Not Available cefuroxime axetil 250 mg tablet TAKE 1 TABLET BY MOUTH 2 TIMES DAILY X7 DAYS 02/28 completed Not Available Not Available Not Available cefpodoxime 200 mg tablet TAKE 1 TABLET BY MOUTH EVERY 12 HOURS FOR 10 DAYS 02/28 completed Not Available Not Available Not Available prednisone 20 mg tablet Take 3 tablets every day by oral route in the morning for 5 days. 03/20 completed Not Available Not Available Not Available Pyridium 200 mg tablet Take 1 tablet 3 times a day by oral route. 2022 active Not Available Not Available Not Avai lable Diflucan 150 mg tablet Take 1 tablet every week by oral route for 14 days. 2022 active Not Available Not Available Not Avai lable ciprofloxac in 500 mg tablet TAKE 1 TABLET BY MOUTH EVERY 12 HOURS FOR 5 DAYS 02/28 completed Not Available Not Available Not Available omeprazole 40 mg capsule,del ayed release TAKE 1 CAPSULE BY MOUTH EVERY DAY 30 MINUTES BEFORE MORNING MEAL active Not Available Not Available No t Available triamcinolo ne acetonide 0.1 % topical cream APPLY TO AFFECTED AREA TWICE A DAY 02/28 completed Not Available Not Available Not Available methenamine hippurate 1 gram tablet TAKE 1 TABLET BY MOUTH 2 TIMES A DAY WITH MEALS. 02/28 completed Not Available Not Available Not Available prednisone 1 mg tablet TAKE 3 TABLETS BY MOUTH EVERY MORNING AND 2 TABLETS EVERY EVENING 02/28 completed Not Available Not Available Not Available phenazopyri dine 100 mg tablet TAKE 1 TABLET (100 MG TOTAL) BY MOUTH 3 TIMES A DAY NEEDED FOR PAIN 02/28 completed Not Available Not Available Not Available benzonatate 100 mg capsule TAKE 2 CAPSULES BY MOUTH 3 TIMES A DAY NEEDED FOR COUGH. 02/28 completed Not Available Not Available Not Available doxycycline monohydrate 100 mg capsule TAKE 1 CAPSULE BY MOUTH TWICE A DAY FOR 10 DAYS 02/28 completed Not Available Not Available Not Available tacrolimus 0.1 % topical ointment APPLY TO AFFECTED AREA TWICE A DAY 02/28 completed Not Available Not Available Not Available nitrofurant oin macrocrysta l 100 mg capsule TAKE 1 CAPSULE BY MOUTH EVERY DAY 02/28 completed Not Available Not Available Not Available Advair Diskus 500 mcg-50 mcg/dose powder for inhalation TAKE 1 PUFF BY MOUTH TWICE A DAY 03/20 completed Not Available Not Available Not Available gabapentin 300 mg capsule TAKE 1 CAPSULE BY MOUTH NIGHTLY AT BEDTIME. active Not Available Not Available No t Available omeprazole 20 mg capsule,del ayed release TAKE 1 CAPSULE BY MOUTH EVERY DAY 30 MINUTES BEFORE MORNING MEAL FOR 30 DAYS 02/28 completed Not Available Not Available Not Available codeine 10 mg-guaifene sin 100 mg/5 mL oral liquid TAKE 5 MILLILITE RS BY MOUTH 3 TIMES A DAY NEEDED FOR COUGH 02/28 completed Not Available Not Available Not Available cefuroxime axetil 500 mg tablet Take 1 tablet twice a day by oral route for 14 days. 2022 active Not Available Not Available Not Avai lable methylpredn isolone 4 mg tablets in a dose pack TAKE 6 TABLETS ON DAY 1 DIRECTED ON PACKAGE AND DECREASE BY 1 TAB EACH DAY FOR A TOTAL OF 6 DAYS 02/28 completed Not Available Not Available Not Available albuterol sulfate HFA 90 mcg/actuati on aerosol inhaler INHALE 2 PUFFS BY MOUTH EVERY 4 HOURS NEEDED FOR COUGH active Not Available Not Available No t Available doxepin 5 % topical cream APPLY 1G TO AFFECTED AREA 3-4 TIMES DAILY. WAIT 3-4 HRS BETWEEN APPLICATI ONS. (RIGHT ELBOW) APPLY SECOND 02/28 completed Not Available Not Available Not Available azithromyci n 500 mg tablet TAKE 1 TABLET (500 MG TOTAL) BY MOUTH DAILY. 02/28 completed Not Available Not Available Not Available Premarin 0.625 mg/gram vaginal cream INSERT 0.5 GRAM PER VAGINA TWICE WEEKLY AT NIGHTTIME . 02/28 completed Not Available Not Available Not Available nitrofurant oin monohydrate /macrocryst als 100 mg capsule TAKE 1 CAPSULE BY MOUTH TWICE A DAY FOR 5 DAYS 02/28 completed Not Available Not Available Not Available Flowflex COVID-19 Antigen Home Test kit 02/28 completed Not Available Not Available Not Available Vitals Date Recorded Body height Body mass index (BMI) Body weight Body temperature Respiratory rate Oxygen saturation Oxygen saturation in Arterial blood by Pulse oximetry Heart rate Systolic blood pressure Diastolic blood pressure Provider Name and Address Organization Details Last Updated DateTime 3 165.1 cm 44.1 kg/m2 484970. 98 g 97.5 [degF] 18 /min 98 % 98 % 60 /min 110 mm[Hg] 71 mm[Hg] JAIRON IVERSON PA - [facility] 3 08:41:22 Date Recorded Body height Provider Name an d Address Organization Details Last Updated DateTime 03/20/2022 165.1 cm Kiley Lobo PA - [facility] 03/20/2022 12:07:33 Date Recorded Oxygen saturation Oxygen saturation in Arterial blood by Pulse oximetry Heart rate Respiratory rate Body temperature Systolic blood pressure Diastolic blood pressure Provider Name and Address Organization Details Last Updated DateTime 3 98 % 98 % 63 /min 18 /min 98.2 [degF] 99 mm[Hg] 61 mm[Hg] MAULIK ALONZO PA - [facility] 3 12:51:40 Social History Question Answer Notes LastModified by [employer] ion Details LastModified Time Tobacco Smoking Status Never Smoker JAIRON walton PA - [facility] 02/28/2022 08:39:38 What Is Your Level Of Alcohol Consumption? Occasional Information not available 02/28/2022 How Many Times Per Week Do You Consume Alcohol? <1 Time Per Week Information not available 02/28/2022 Do You Use Any Illicit Or Recreational Drugs? No Information not available 02/28/2022 Have You Recently Traveled Abroad? No Information not available 02/28/2022 Do You Or Have You Ever Used Any Other Forms Of Tobacco Or Nicotine? No Information not available 02/28/2022 Sex: Unknown Functional Status None recorded. Mental Status None recorded. Family History Relationship Description Onset Age of this Age Resolved Age Notes LastModified by Organization Details LastModified Time Father Myocardial infarction Not available 02/28 08:38:04 Father Malignant tumor of kidney Not available 2022 08:38:10 Father Malignant tumor of lung Not available 2022 08:38:23 Mother Chronic obstructive pulmonary disease Not available 2022 08:38:15 Medical History No medical history recorded. Gynecological HistoryNo gynecological history recorded. Obstetrics History GPAL:G 0 P 0 0 0 0 Immunizations Vaccine Type Date Status Provider Name and Address Organization Details Recorded Time Tdap 08/10/2010 completed JAIRON DEPINTO null, PA - [facility] 02/28/2022 08:35:45 COVID-19, mRNA, LNP-S, PF, 100 mcg/0.5mL dose or 50 mcg/0.25mL dose 03/07/2020 completed JAIRON DEPINTO null, PA - [facility] 02/28/2022 08:35:45 Influenza, split virus, quadrivalent, PF 03/16/2021 completed JAIRON DEPINTO null, PA - [facility] 02/28/2022 08:35:45 COVID-19, mRNA, LNP-S, PF, 100 mcg/0.5mL dose or 50 mcg/0.25mL dose 12/27/2020 completed JAIRON DEPINTO null, PA - [facility] 02/28/2022 08:35:45 Influenza, split virus, quadrivalent, PF 01/11/2019 completed JAIRON DEPINTO null, PA - [facility] 02/28/2022 08:35:45 Influenza, split virus, trivalent, preservative 12/15/2007 completed JAIRON DEPINTO null, PA - [facility] 02/28/2022 08:35:45 COVID-19, mRNA, LNP-S, PF, 100 mcg/0.5mL dose or 50 mcg/0.25mL dose 04/07/2020 completed JAIRON DEPINTO null, PA - [facility] 02/28/2022 08:35:45 Td (adult), 2 Lf tetanus toxoid, preservative free, adsorbed 03/16/2021 completed JAIRON DEPINTO null, PA - [facility] 02/28/2022 08:35:45 Influenza, split virus, quadrivalent, PF 11/23/2019 completed JAIRON DEPINTO null, PA - [facility] 02/28/2022 08:35:45 Past Encounters Encounter ID Performer Location Encounter Start Date Encounter Closed Date Diagnosis/Indication Diagnosis SNOMED-CT Code Diagnosis ICD10 Code [id number] [address] [facility] [place] [address] 05/13/2015 08:43:09 05/13/2015 10:00:41 [id number] [address] [facility] [place] [address] 10/01/2016 18:32:46 10/01/2016 19:53:51 [id number] [address] [address] [facility] [place] [address] 12/02/2015 08:00:09 12/02/2015 08:51:41 [id number] [address] [facility] [place] [address] 11/25/2020 08:15:27 11/25/2020 10:29:45 [id number] [address] [facility] [place] [address] 01/20/2017 07:48:17 01/20/2017 08:45:59 [id number] [address] [address] [facility] [place] [address] 05/07/2016 08:01:55 05/07/2016 08:37:25 [id number] [address] [facility] [place] [address] 12/16/2017 09:43:50 12/16/2017 10:22:36 [id number] [address] [facility] [place] [address] 07/21/2018 10:37:22 07/21/2018 11:22:46 [id number] [address] [address] [facility] [place] [address] 01/21/2017 18:10:02 01/21/2017 18:51:00 [id number] YG STARK [address] [place] [address] 02/28/2022 08:14:36 02/28/2022 09:14:48 Acute upper respiratory infection [id number] J06.9 [id number] YG PHAN [address] [address] 03/20/2022 10:23:39 03/20/2022 13:07:04 Increased frequency of urination 944543837 R35.0 Dysuria 24038094 R30.0 Diabetes m ellitus screening 324878160 Z13.1 Health Concerns Section Related Observation LastModified by Organization Detai ls LastModified Time None Recorded Concern Status LastModified by Organization Details LastModified Time None Recorded Advance Directives Directive None Recorded Payers Encounter Date Sequence Insurance Name Policy Number Policy Watts Covered Member ID Watts Member ID Guarantor Name 12/16/2017 1 [employer] (INDEMNITY) [id number] Lizzie Guzman [id number] Lizzie Guzman 07/21/2018 1 [employer] (INDEMNITY) [id number] Lizzie Guzman [id number] Lizzie Guzman 11/25/2020 1 [employer] (INDEMNITY) [id number] Lizzie Guzman [id number] Lizzie Guzman 02/28/2022 1 [employer] (INDEMNITY) [id number] Lizzie Guzman [id number] Lizzie Guzman 03/20/2022 1 [employer] (INDEMNITY) [id number] Lizzie Guzman [id number] Lizzie Guzman Notes Date Note Type Note Provider Name and Address Organization Details Recorded Time 3 text/html Lizzie is a 51 yo F here for sinus headache/pressure x 1 wk. Dry cough. No fevers, chills, sweats, facial pain, swelling, dizziness/vertigo. No severe GONZALEZ. Gets sinus infections often. Had neg COVID at home 2 days ago. Declines testing. Feels she needs an antibiotic. Cough is worse at night. No SOB, wheezing, dizziness, CP, fevers. Notes hx of bronchitis frequently (every few years) and feels like her symptoms are headed in that direction. YG CULLEN [address] [place], [address], [facility] 02/28/2022 09:05:50 3 text/html Urinary Complaint FemaleReported bypatient.source of patient informationInformation obtained from patient; Patient arrived at Urgent Care ambulatory UTI Symptoms:no blood in the urine; no vaginal discharge; no pain in the flank; no fever/chills; no incontinence; no recurrent UTI; no known exposure to STD;pain during urination;urgency;urinary frequency;recurrent UTI Severity:severe Duration:1 daysNotes:The patient has a history of recurrent UTI. Finished a 3 month course of Macrobid that was prescribed by her urogynocologist. she has had workup and just dx withoveractive bladder. She feels like she is having spasms today. Very uncomfortable. Took AZO. YG PHAN [address] [place], [address], [place] [facility] 03/20/2022 13:09:04 OBGyn Episode No OBEpisode recorded.
--- OUTSIDE RECORDS SUMMARY | 2024-01-27 22:36 | XMS_ITS | Patient Health Record ---
Author Organization [facility] [place] Address [address] [place] [address] Care Team Providers Care Kid Club Attendant Name Role Phone Tenisha Lofton Primary Care Provider UnavailGavino Deal Unavailable [phone] Allergies No Known Allergies Reason For Referral No Information Medications Medication SIG (Take, Route, Fr equency, Duration) Notes Start Date End Date Status Custom Orthotics as directed A ctive Salex 6 % (Cream) as directed External ly qd hs to callous for 30 days 10/13/2014 Not-Takin g Myrbetriq Not-Taking Microgestin .07/16 N ot-Taking Naproxen Not-Taking June03/08 Not-Takin g Cipro 500 MG 1 tablet Orally ever y 12 hrs for 10 days Not-Taking Diflucan 200 MG 1 tablet Orally qd for 5 days Not-Taking Prednisone 15 mg Not -Taking Metoclopramide HCl N ot-Taking predniSONE 3MG Not-Takin g Gabapentin 300 MG 1 capsule Orally Onc e a day hs for 10 days 11/24/2018 Active Omeprazole 40 MG as directed Orally Active Immunizations Vaccine Route Administration Date Status Comme nts COVID-19 Moderna Vaccine Unknown 04/07/2020 Administere d 1st 03/07/20 Influenza Unknown 01/05/2021 Administered Social History Tobacco Use: Social History Observation Description Date Details (start date - stop date) Never Smoker NA - NA Tobacco Use/Smoking Question Answer Notes Are you a: nonsmoker Additional Findings: Tobacco Non-User Current no n-smoker Alcohol Screen Question Answer Notes Did you have a drink containing alcohol in the p ast year? No Points 0 Interpretation Negative Tobacco use other than smoking: Question Answer Notes Are you an other tobacco user? No Problems Problem Type SNOMED Code ICD Code Onset Dates Problem Status W/U Status Risk Notes Problem Acquired hammer toe of right foot (0664859009332 105) Other hammer toe(s) (acquired), right foot (M20.41) Active confirmed Problem Acquired hammer toe of left foot (7759675100259 103) Other hammer toe(s) (acquired), left foot (M20.42) Active confirmed Plan Of Treatment Pending Test Test Name Order Date X ray : Foot, left 3V 08/03/2014 X ray : Foot, right 3V 11/09/2018 X ray : Foot, right 3V 12/07/2018 X ray : Foot, right 3V 12/21/2018 X ray : Foot, right 3V 01/20/2019 X ray : Foot, right 3V 09/21/2019 [id number] Plate 10/17/2015 [id number] Plate 08/26/2017 [id number] 12/26/2017 [id number] 03/07/2016 28161- Debride <25 sq cm 03/25/2016 36200- Debride <25 sq cm 10/31/2015 10908- Debride <25 sq cm 01/13/2018 93049- Debride <25 sq cm 09/30/2017 Insurance Providers Payer Name Payer Address Payer Phone Subscriber Number Group Number Insured Name Patient Relationship to Insured Coverage Start Date Coverage End Date [facility] [address] [place] [id number] Lizzie Guzman Self - patient is the insured Medical (General) History Medical History History ICD Code Chicken pox Surgical History Surgery Date(Month/Year) hysterectomy 2010 Left foot plantar fasciitis 2012 right foot plantar fasciitis 2008 right knee surgery 06/2018 HT R4th w/Smart toe implant 12/03/2018 mohs surgery 03/26/21 Hospitalization History Reason Date(Month/Year) 2016
--- OUTSIDE RECORDS SUMMARY | 2024-01-27 22:36 | XMS_ITS | Data Portability ---
Author Organization [place] [facility], [facility] Address [address] [address] Care Team Providers Care Squirt Machine Operator Name Role Phone PERICO SINGER Primary Care Provider Assessment Encounter Date Assessment Date Assessment LastModified by Organization Details LastModified Time 11/19/2022 11/19/2022 The visit was 30 minutes in length and included review of the medical record before the encounter, qysg-qz-pwfk time, communicating care to other family members or providers when necessary, ordering tests/studies when necessary, and documenting the visit in the medical record. Review of prior internal and external notes were performed, as well as review of prior test results and studies performed, when available. [email or web address] Not available 11/23/2022 21:44:25 11/26/2022 11/26/2022 Impression: #1. Planter fasciitis, right foot. 2. Adductovarus contracture (rigid), fifth toe right foot. Plan: Reviewed findings with the patient. With regard to the plantar fasciitis reviewed activity restrictions, appropriate shoe gear, and continued use of her custom orthotics. We will get her into physical therapy and augment this with a course of meloxicam 15 mg 1 p.o. daily PC with strong GI precautions. Return in 6 weeks for reassessment. Note that she is somewhat needle phobic. With regard to the fifth toe we reviewed the nature of the condition. In that it is now a rigid contracture the only definitive solution would be an arthroplasty procedure. She is not interested in that at this point time as the symptoms are mild. Reviewed appropriate shoe gear and spacing strategies. The visit was 30 minutes in length and included review of the medical record before the encounter, hsfy-qd-eyqu time, communicating care to other family members or providers when necessary, ordering tests/studies when necessary, and documenting the visit in the medical record. Review of prior internal and external notes were performed, as well as review of prior test results and studies performed, when available. Not available 11/26/2022 14:07:49 Plan of Treatment Reminders Order Date Submit Date Provider Last Modified By Organization Details Last Modified Time Details Appointments None recorded. Lab None recorded. Referral physical therapist referral - Decrease pain/infla mmation; Increase Strength/f lexibility ; DTM/STM to proximal fascia, as tolerated 2022 [email or web address] Not available 15:57:00 Procedures None recorded. Surgeries None recorded. Imaging None recorded. Medication Orders meloxicam 15 mg tablet 2022 [id number], [address] [place], [address], 14:05:15 Patient TargetsNo targets recorded. Patient Instructions Encounter Date Encounter Id Patient Instructions Last Modified By Organization Details Last Modified Time 11/19/2022 [id number] trigger finger: care instructions [email or web address] Not available 11/23/2022 21:44:49 Reason for Referral Physical Therapist Referral for Plantar fasciitis Decrease pain/inflammation; Increase Strength/flexibility; DTM/STM to proximal fascia, as tolerated Referring Physician: [facility], Encounter Date: 11/26/2022 Problems Name Problem SNOMED Code Status Onset Date Resolution Date Notes Provider Name and Address Organization Details Recorded Time Acquired trigger finger [id number] Active HEATHER ALLEN MD [address] [place] [address], [id number] [facility] 11/23/2022 21:44:26 Problem Notes None recorded. Medical Equipment None Reported. Allergies No known drug allergies Medications Name Sig Start Date Stop Date Status Note LastModified by Organization Details LastModified Time manuel 10%/diclo 5%/baclo 2%/cyclo 2%/bupiv hcl 2% ssls APPLY FOUR GRAMS TO THE AFFECTED AREA FOUR TIMES DAILY. APPLY FIRST, RUB IN WELL (RIGHT ELBOW) active Not Available Not Available No t Available albuterol sulfate 2.5 mg/3 mL (0.083 %) solution for nebulizatio n TAKE 3 ML (2.5 MG TOTAL) BY NEBULIZAT ION EVERY 6 HOURS NEEDED active Not Available Not Available No t Available azithromyci n 250 mg tablet TAKE 2 TABLETS BY MOUTH TODAY, THEN TAKE 1 TABLET DAILY FOR 4 DAYS active Not Available Not Available No t Available fluconazole 150 mg tablet TAKE 1 TABLET EVERY WEEK BY ORAL ROUTE FOR 14 DAYS. active Not Available Not Available No t Available benzonatate 200 mg capsule TAKE 1 CAPSULE (ORAL) 3 TIMES PER DAY NEEDED - COUGH FOR 7 DAYS active Not Available Not Available No t Available meloxicam 15 mg tablet TAKE 1 TABLET BY MOUTH EVERY DAY DIRECTED FOR 14 DAYS active Not Available Not Available No t Available phenazopyri dine 200 mg tablet TAKE 1 TABLET 3 TIMES A DAY BY ORAL ROUTE. 11/19 completed Not Available Not Available Not Available prednisone 20 mg tablet TAKE 2 TABLET (ORAL) 1 TIME PER DAY FOR 5 DAYS THEN 1 TABLET (ORAL) 1 TIME PER DAY FOR 2 DAYS 11/19 completed Not Available Not Available Not Available omeprazole 40 mg capsule,del ayed release TAKE 1 CAPSULE BY MOUTH EVERY DAY 30 MINUTES BEFORE MORNING MEAL active Not Available Not Available No t Available methenamine hippurate 1 gram tablet TAKE 1 TABLET BY MOUTH 2 TIMES A DAY WITH MEALS. active Not Available Not Available No t Available prednisolon e acetate 1 % eye drops,suspe nsion INSTILL 1 DROP INTO BOTH EYES 4 TIMES A DAY FOR 4 DAYS AFTER LASER, THEN STOP 11/19 completed Not Available Not Available Not Available prednisone 1 mg tablet TAKE 3 TABLETS BY MOUTH EVERY MORNING AND 2 TABLETS EVERY EVENING 11/19 completed Not Available Not Available Not Available benzonatate 100 mg capsule TAKE 2 CAPSULES 3 TIMES A DAY BY ORAL ROUTE NEEDED. active Not Available Not Available No t Available tacrolimus 0.1 % topical ointment APPLY TO AFFECTED AREA TWICE A DAY 11/19 completed Not Available Not Available Not Available nitrofurant oin macrocrysta l 100 mg capsule TAKE 1 CAPSULE BY MOUTH EVERY DAY active Not Available Not Available No t Available Advair Diskus 500 mcg-50 mcg/dose powder for inhalation TAKE 1 PUFF BY MOUTH TWICE A DAY active Not Available Not Available No t Available gabapentin 300 mg capsule TAKE 1 CAPSULE BY MOUTH NIGHTLY AT BEDTIME. active Not Available Not Available No t Available omeprazole 20 mg capsule,del ayed release TAKE 1 CAPSULE BY MOUTH EVERY DAY 30 MINUTES BEFORE MORNING MEAL FOR 30 DAYS active Not Available Not Available No t Available montelukast 10 mg tablet TAKE 1 TABLET BY MOUTH EVERYDAY AT BEDTIME active Not Available Not Available No t Available codeine 10 mg-guaifene sin 100 mg/5 mL oral liquid TAKE 5 MLS AT BEDTIME NEEDED. MAY CAUSE DROWSINES S active Not Available Not Available No t Available cefuroxime axetil 500 mg tablet TAKE 1 TABLET BY MOUTH TWICE A DAY FOR 14 DAYS active Not Available Not Available No t Available methylpredn isolone 4 mg tablets in a dose pack TAKE 6 TABLETS ON DAY 1 DIRECTED ON PACKAGE AND DECREASE BY 1 TAB EACH DAY FOR A TOTAL OF 6 DAYS active Not Available Not Available No t Available albuterol sulfate HFA 90 mcg/actuati on aerosol inhaler INHALE 2 PUFFS EVERY 4-6 HOURS NEEDED FOR 14 DAYS active Not Available Not Available No t Available doxepin 5 % topical cream APPLY 1G TO AFFECTED AREA 3-4 TIMES DAILY. WAIT 3-4 HRS BETWEEN APPLICATI ONS. (RIGHT ELBOW) APPLY SECOND active Not Available Not Available No t Available azithromyci n 500 mg tablet TAKE 1 TABLET (500 MG TOTAL) BY MOUTH DAILY. active Not Available Not Available No t Available Premarin 0.625 mg/gram vaginal cream INSERT 0.5 GRAM PER VAGINA TWICE WEEKLY AT NIGHTTIME . 11/19 completed Not Available Not Available Not Available nitrofurant oin monohydrate /macrocryst als 100 mg capsule TAKE 1 CAPSULE BY MOUTH TWICE A DAY FOR 5 DAYS 11/19 completed Not Available Not Available Not Available COVID-19 At-Home Test kit FOLLOW INSTRUCTI ONS INCLUDED WITH THE PACKAGE. 11/19 completed Not Available Not Available Not Available Vitals Date Recorded Body height Body mass index (BMI) Body weight Provider Name and Address Organization Details Last Updated DateTime 11/19/2022 165.1 cm 45.1 kg/m2 749100.53 g [facility] 11/19/2022 14:50:27 Date Recorded Body height Body mass index (BMI) Body weight Provider Name and Address Organization Details Last Updated DateTime 11/26/2022 165.1 cm 45.1 kg/m2 748687.53 g [facility] 11/26/2022 13:18:54 Social History None recorded. Functional Status None recorded. Mental Status None recorded. Family History Nothing Reported. Medical History Condition Response Coronary Artery Disease N Gout N Lung Disease N Depression N Pacemaker N Hearing Impairment N Anesthesia Complications N Headaches/Migraines N Deep Vein Thrombosis N Anxiety Disorder N Arthritis N Blood Clot N Acid Reflux (GERD) N Cancer N Stroke N Organ Transplant N Rheumatoid Arthritis N Fibromyalgia N Kidney Disease N Dyslipidemia N Artificial Joints N Thyroid Problems N Anemia N Back Pain N Heart Attack ([place]) N Diabetes N Bleeding Disorder N Seizures/Epilepsy N Cardiac Stent N Tuberculosis N AIDS/HIV N Inflammatory Bowel Disease N Substance Abuse N Peripheral Vascular Disease N Asthma/COPD N Wears Glasses/Contacts Y Hepatitis N Heart Disease N Pulmonary Embolism N Hypertension N Stomach Ulcer N Osteoporosis N Gynecological HistoryNo gynecological history recorded. Obstetrics History GPAL:G 0 P 0 0 0 0 Past Encounters Encounter ID Performer Location Encounter Start Date Encounter Closed Date Diagnosis/Indication Diagnosis SNOMED-CT Code Diagnosis ICD10 Code [id number] HEATHER ALLEN MD [facility] [address] [facility], [address] [place] [address] 11/19/2022 14:24:54 11/26/2022 14:36:55 Acquired trigger finger 0644511 M65.331 [id number] GEORGINA PEREZ DPM [address] [address] 11/26/2022 13:12:36 11/26/2022 14:16:29 Plantar fasciitis 970374831 M72.2 Hammer toe 535869261 M20 .41 Health Concerns Section Related Observation LastModified by Organization Detai ls LastModified Time None Recorded Concern Status LastModified by Organization Details LastModified Time None Recorded Advance Directives Directive None Recorded Payers Encounter Date Sequence Insurance Name Policy Number Policy Watts Covered Member ID Watts Member ID Guarantor Name 11/19/2022 1 [facility] [employer] [employer] (PPO) [id number] Lizzie Guzman [id number] Lizzie Guzman 11/26/2022 1 [employer] - [employer] INDEMNITY PLAN (PPO) [id number] 6 Lizzie Guzman [id number] Lizzie Guzman Notes Date Note Type Note Provider Name and Address Organization Details Recorded Time 11/19/2022 text/html Wrist/HandReport ed bypatient.Hand Dominance:right Location:right Quality:throbbing; sharp; dull Severity:moderate Duration:1 months Timing:acute Context:overuse Alleviating Factors:rest; elevation Aggravating Factors:lifting; carrying; pushing/pulling; gripping; grasping; squeezing; weightbearing Associated Symptoms:no tingling; no redness; no warmth; no instability; no radiation;catching/ locking;popping/cli cking Working:regular duty 52 y/o [employer] female, plays pickle ball regularly and drives for extended periods, presents with a complaint of her right middle finger getting stuck in a flexed position, especially in the mornings. The condition has been ongoing for about a month. She reports that the finger improves as she moves throughout the day. She denies any numbness or tingling in her fingers. She has been driving extensively lately, sometimes up to six hours a day, which she believes may be contributing to the issue. She reports that her finger gets achy at night after driving. She denies any significant pain, describing the sensation as more annoying than painful. She also reports a clicking sensation in the finger, which she describes as weird but not painful. The patient denies any numbness or tingling in her fingers. She has a history of tennis elbow. Patient's mother has had nine trigger fingers. HEATHER ALLEN MD [address] [place], [address], [facility] 11/23/2022 21:45:06 11/26/2022 text/html Lizzie is a 52-year-old female who presents requesting evaluation of 3-week history of plantar right heel pain. This seems to be associated with her pickleball activities. Note that she does have a significant history of plantar fasciotomy approximately 15 years ago from which she did quite well with up until recently. Also complains of occasional pain at 1/5 hammertoe right foot. She states she has had a previous procedure done on that toe as well. GEORGINA PEREZ DPM [address] [place], [address], [facility] 11/26/2022 14:08:01 OBGyn Episode No OBEpisode recorded.
--- OUTSIDE RECORDS SUMMARY | 2024-01-27 22:51 | XMS_ITS | Data Portability ---
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 time for repeat evaluation. Not available 07/29/2018 22:15:28 09/01/2018 09/01/2018 IMPRESSION: She is doing well, now 6 weeks status post her surgery. PLAN: We will have her slowly and progressively increase her level of function and activity and I will have her continue to progressively add resisted work out and have her follow up with me in the fall if she is not where she wants to be. Not available 09/03/2018 17:13:50 11/26/2018 11/26/2018 Data: X-Ray standing AP/Flexed AP/Lateral/Freedom Line Right+Left knee-11/26/2018: Mild spurring of patella and trochlea with good maintainance of joint space bilaterally. Good maintainance of joint space, Kellgren Stanley scale grade 1. Impression\Plan: 48 year old female who has bilateral knee osteoarthritis proven history, exam and by prior right knee arthroscopy even though radiographs are begin, with a large effusion. Discussed possible treatment options; she has a large needle fobia. She has already tried OTC anti-inflammatorie s. I will give her a prednisone taper; with discussion of injection for next appointment if oral medication does not give her the relief she needs. She will contact us in a couple of weeks if she has no improvement. I will call her in a couple mg's of Ativan in order to undergo the bilateral injections and asperation. Consulted the patient on the importance of weight loss and staying in good physical condition while trying to find a happy medium which will not create a flare. F/U as needed. [email or web address] Not available 11/26/2018 15:26:50 01/01/2021 01/01/2021 DATA: Plain radiographs including standing AP, PA flexed, lateral, and skyline views show no significant osseous abnormality, fracture, or dislocation, and specifically no arthritis. IMPRESSION: A 50-year-old female with a history of right knee PVNS, who has had a 3-month history of progressive knee pain and swelling. PLAN: We are going to repeat the MRI and see if she has recurrent disease, or whether this is some of her arthritis which we had noted at the time of surgery 2?? years ago. We will see her back after the MRI has been done. The patient did complete the COVID-19 screening handout and was deemed healthy to move forward with this appointment. This visit is a [id number] visit during the COVID-19 pandemic Public Health Emergency. Based on my clinical judgment, I felt that this visit could not be provided safely and appropriately via TeleHealth. Based on available information prior to presentation, the patient had a high risk of significant worsening and potential functional impairment affecting ADLs if the visit was not completed today. The patient was seen in the office after following PPE use, Workforce Safety, Patient Safety and Infection Control protocols for all services provided today in accordance with [facility] and CDC guidelines. There was additional practice expense incurred due to the Public Health Emergency. This additional expense includes but is not limited to: ? ? Additional clinical staff and medical technical artist time for pre-screening ? ? Time spent reviewing COVID social distancing guidelines, precautions, instructions, and signage ? ? Patient symptom checking upon arrival ? ? Application, removal, and purchasing of additional PPE ? ? Additional cleaning of exam room, equipment, supplies, as well as cleaning supplies for that purpose. Not available 01/03/2021 18:08:54 01/16/2021 01/16/2021 DATA: The repeat MRI at [facility] performed on January 10, 2021 does not show any evidence of PVNS. She does have tricompartmental arthritis, most pronounced in her patellofemoral joint, and going back to her operative note it looks like it is fairly similar. IMPRESSION: We went over the MRI and discussed management of her discomfort, for which she intermittently uses ibuprofen and Tylenol once a week or so, because that is all her stomach can really tolerate. We talked a little bit about turmeric and nutraceuticals, and an anti-inflammatory diet. PLAN: We did discuss injections, but she is very needle adverse, so we are going to hold off on that. She is going to modify her CrossFit, work on the anti-inflammatory nutritional side of things, and get back to us if she would like us to do anything else. She, otherwise, will follow up with us on an as-needed basis. I spent a total of 21 minutes during this real-time interactive virtual clinic encounter. Not available 01/18/2021 10:51:17 Plan of Treatment Reminders Order Date Submit Date Provider Last Modified By Organization Details Last Modified Time Details Appointments None recorded. Lab None recorded. Referral None recorded. Procedures None recorded. Surgeries None recorded. Imaging MRI, knee, w/o contrast - pasplease call to schedule, thank you DX: h/o pvns, ? recurrence 2020 021 [facility] ([facility]), [address] [place], [address], 1 10:20:30 Medication Orders Medrol (Natan) 4 mg tablets in a dose pack 2018 019 [id number], [address] [place], [address], 1 12:00:27 Patient TargetsNo targets recorded. Patient InstructionsNo instructions recorded. Reason for Referral None Reported. Results Created Date Observation Date Name Description Value Unit Range Abnormal Flag Note LastModifiedBy Organization Detail LastModifiedTime 07/01/19 19 06/26/2018 MRI, knee, w/o contr ast No observ ation record ed. [email or web address] Not Available 06/30 16:58:15 07/02/19 19 06/26/2018 MRI, knee, w/o contr ast No observ ation record ed. [email or web address] Not Available 2018 14:42:22 09/22/19 19 09/18/2018 MRI, knee, w/o contr ast No observ ation record ed. [address] ([facility]) [address] [place], [address], 09/22/2018 08:26:47 09/22/19 19 09/18/2018 MRI, knee, w/o contr ast No observ ation record ed. [address] ([facility]) [address] [place], [address], 09/22/2018 08:51:11 09/23/19 19 09/18/2018 MRI, lower leg, w/o contr ast No observ ation record ed. [email or web address] ([facility]) [address] [place], [address], 09/23/2018 08:25:09 11/27/1911/26/2018 xr knees bilat 4 views each Fin al Report EXAM#: [id number] PROCED URE: DXR 0107 XR KNEES BILAT 4 VIEWS EACH Nov 26 2018 2:57PM CLINIC AL INDICA TION: bilate ral knee pain Compar anaid: 2017 - FINDIN GS: Right knee joint spaces are preser mihai.No joint effusi on. Osseou s minera lizati on is normal . Left knee joint spaces are preser mihai. NUMBER OF IMAGES : 5 Report ed by : MARIPOSA MIRELES M.D. On: Nov 26 2018 3:59P Signed by: MARIPOSA MIRELES M.D. On: Nov 26 2018 4:00P [email or web address] [facility] [address] [place], [address], 11/26/2018 16:13:45 11/27/19 19 11/26/2018 XR, knee, 1 or 2 view No observ ation record ed. [facility] ([facility]ri) [address], [place], [address], 11/30/2018 08:13:12 01/02/20 21 01/01/2021 XR, knee http:/ [email or web address]/opa lweb/I ntegra tionPr ocesso r.aspx ?CMD=O PENSTU DY&ACC ESSION =[id number] [email or web address] [facility] [address] [place] [address], [address], 01/01/2021 14:37:07 01/16/20 21 01/10/2021 MRI, knee, w/o contr ast No observ ation record ed. [facility] ([facility]) [address], [place], [address], 01/15/2021 10:20:35 Result Notes None recorded. Problems No Known Problems Procedures Surgical History Date Name Laterality Status Provider Name and Address Organization Details Recorded Time 9 Orthopaedic Surgery completed Kailee Gray [facility] 07/28/2018 11:44:48 4 Orthopaedic Surgery completed Rosalind Poon [facility] 06/30/2018 11:34:47 0 Other completed Rosalind Poon [facility] 06/30/2018 11:34:14 8 Other completed Rosalind Poon [facility] 06/30/2018 11:34:33 Imaging Results Imaging Date Name Status LastModified by Organiz ation Details LastModified Time 06/26/2018 MRI, knee, w/o contrast completed [email or web address] Information not available 06/30/2018 16:58:15 06/26/2018 MRI, knee, w/o contrast completed [email or web address] Information not available 07/01/2018 14:42:22 09/18/2018 MRI, knee, w/o contrast completed [email or web address] [facility] ([facility]) [address] [place] [address], [address], 09/22/2018 08:26:47 09/18/2018 MRI, knee, w/o contrast completed [email or web address] [facility] ([facility]) [address] [place], [address], 09/22/2018 08:51:11 09/18/2018 MRI, lower leg, w/o contrast completed [email or web address] [facility] ([facility]) [address] [place], [address], 09/23/2018 08:25:09 11/26/2018 xr knees bilat 4 views each completed [email or web address] [facility] [address] [place], [address], 11/26/2018 16:13:45 11/26/2018 XR, knee, 1 or 2 view completed [facility] ([facility]) [address] [place], [address], 11/30/2018 08:13:12 01/01/2021 XR, knee completed [email or web address] [facility] [address] [place] [address], [address], 01/01/2021 14:37:07 01/10/2021 MRI, knee, w/o contrast completed [facility] ([facility]) [address] [place], [address], 01/15/2021 10:20:35 Procedure Notes None recorded. Medical Equipment None Reported. Allergies No known drug allergies Medications Name Sig Start Date Stop Date Status Note LastModified by Organization Details LastModified Time azithromyci n 250 mg tablet 01/01 completed Not Available Not Available Not Available fluconazole 150 mg tablet 12/31 completed Not Available Not Available Not Available benzonatate 200 mg capsule 11/26 completed Not Available Not Available Not Available ranitidine 300 mg tablet 11/26 completed Not Available Not Available Not Available hydrocodone 5 mg-acetamin ophen 325 mg tablet 07/28 completed Not Available Not Available Not Available phenazopyri dine 200 mg tablet 01/16 completed Not Available Not Available Not Available prednisone 5 mg tablet active Not Available Not Available Not Available methylpredn isolone 4 mg tablet TAKE 6 TABLETS TODAY, DECREASE BY 1 TABLET DAILY UNTIL FINISHED TAKE WITH FOOD 11/26 completed Not Available Not Available Not Available acetaminoph en 300 mg-codeine 30 mg tablet 11/26 completed Not Available Not Available Not Available omeprazole 40 mg capsule,del ayed release 01/01 completed Not Available Not Available Not Available amoxicillin 875 mg tablet 01/01 completed Not Available Not Available Not Available metoclopram toi 5 mg tablet 11/26 completed Not Available Not Available Not Available prednisone 1 mg tablet 01/16 completed Not Available Not Available Not Available gabapentin 300 mg capsule 12/31 completed Not Available Not Available Not Available omeprazole 20 mg capsule,del ayed release TAKE 1 CAPSULE BY MOUTH EVERY DAY active Not Available Not Available No t Available mupirocin 2 % topical ointment 11/26 completed Not Available Not Available Not Available methylpredn isolone 4 mg tablets in a dose pack TAKE 6 TABLETS ON DAY 1 DIRECTED ON PACKAGE AND DECREASE BY 1 TAB EACH DAY FOR A TOTAL OF 6 DAYS 01/01 completed Not Available Not Available Not Available naproxen 500 mg tablet 12/31 completed Not Available Not Available Not Available Microgestin 03/08 (21) 1 mg-20 mcg tablet 11/26 completed Not Available Not Available Not Available FE 03/08 (28) 1 mg-20 mcg (21)/75 mg (7) tablet 11/26 completed Not Available Not Available Not Available nitrofurant oin monohydrate /macrocryst als 100 mg capsule 01/16 completed Not Available Not Available Not Available trospium 20 mg tablet 12/31 completed Not Available Not Available Not Available Atrovent HFA 17 mcg/actuati on aerosol inhaler INHALE 2 PUFFS (34 MCG) BY INHALATIO N ROUTE 3 TIMES PER DAY 11/26 completed Not Available Not Available Not Available Symbicort 160 mcg-4.5 mcg/actuati on HFA aerosol inhaler 11/26 completed Not Available Not Available Not Available Juan Herrera [facility] spacer 11/26 completed Not Available Not Available Not Available Myrbetriq 25 mg tablet,exte nded release 11/26 completed Not Available Not Available Not Available Myrbetriq 50 mg tablet,exte nded release 11/26 completed Not Available Not Available Not Available Vicodin 5 mg-300 mg tablet 1-2 tabs every 4-6 hours as needed 07/28 completed Not Available Not Available Not Available Breo Ellipta 100 mcg-25 mcg/dose powder for inhalation INHALE BY MOUTH ONCE A DAY 12/31 completed Not Available Not Available Not Available Vitals Date Recorded Body height Body mass index (BMI) Body weight Provider Name and Address Organization Details Last Updated DateTime 01/01/2021 165.1 cm 44.9 kg/m2 074115.94 g Kalli Terri [facility] 01/01/2021 12:00:20 Date Recorded Body height Body mass index (BMI) Body weight Provider Name and Address Organization Details Last Updated DateTime 01/16/2021 165.1 cm 44.9 kg/m2 954539.94 g Kalli Terri [facility] 01/16/2021 10:17:15 Date Recorded Body height Body mass index (BMI) Body weight Provider Name and Address Organization Details Last Updated DateTime 07/28/2018 165.1 cm 38.3 kg/m2 399678.25 g Kailee Gray [facility] 07/28/2018 11:43:39 Date Recorded Body height Body mass index (BMI) Body weight Provider Name and Address Organization Details Last Updated DateTime 09/01/2018 165.1 cm 38.3 kg/m2 738833.25 g Megan Masterson [facility] 09/01/2018 12:56:08 Date Recorded Body height Body mass index (BMI) Body weight Provider Name and Address Organization Details Last Updated DateTime 11/26/2018 165.1 cm 38.3 kg/m2 004975.25 g Tamiko Ramirez [facility] 11/26/2018 14:59:35 Social History Question Answer Notes LastModified by Organizat ion Details LastModified Time Tobacco Smoking Status Never Smoker Rosalind walton [facility] 06/30/2018 11:33:18 What Is Your Level Of Alcohol Consumption? None [email or web address] Information not available 06/30/2018 Auto Related Injury? No Information not available 01/01/2021 What Is Your Level Of Caffeine Consumption? None Information not available 01/01/2021 Do You Or Have You Ever Used E-cigarettes Or Vape? 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 No [email or web address] Information not available 06/30/2018 What Was The Date Of Your Most Recent Tobacco Screening? 09/01/2018 Information not available 01/01/2021 How Much Tobacco Do You Smoke? No Information not available 01/01/2021 What Types Of Sporting Activities Do You Participate In? 4-5 DAYS A WEEK CROSSFIT [email or web address] Information not available 06/30/2018 How Many Years Have You Smoked Tobacco? 0 Information not available 01/01/2021 Work Related Injury? No Information not available 01/01/2021 Sex: Unknown Functional Status Question Answer Note LastModified by Organization D etails LastModified Time What is your exercise level? Moderate Information not available 01/01/2021 Mental Status None recorded. Family History Relationship Description Onset Age of this Age Resolved Age Notes LastModified by Organization Details LastModified Time Father No current problems or disability [email or web address] Not available 06/17 11:38:41 Mother No current problems or disability [email or web address] Not available 06/17 11:38:41 Medical History Condition Response Blood Clots / Phlebitis N Heart Problems N HIV or AIDS N Depression or Anxiety N High Blood Pressure N Irregular Heartbeat N MRSA N Any Other Significant Medical Issues N Emphysema / Chronic Bronchitis N Reaction to General/Local Anesthesia N Hepatitis / Jaundice N Weight Gain / Loss N Kidney / Bladder Infections N Diabetes N Bleeding Disorder N Hearing Loss Y Angina, Heart Failure or Attack N Seizures / Epilepsy N Night Sweats Y Osteoarthritis / Rheumatoid arthritis / Other N Cancer N Stroke N Chemical Dependency / Alcoholism N Ulcer / Stomach Bleeding / Indigestion N Visual Loss or Glaucoma N Thyroid Disorder N Psoriasis / Skin Rash N Heart Disease N Pulmonary Embolism N Asthma / Shortness of Breath / 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 Obstetrics History GPAL:G 0 P 0 0 0 0 Immunizations Vaccine Type Date Status Provider Name and Address Organization Details Recorded Time COVID-19, mRNA, LNP-S, PF, 100 mcg/0.5mL dose or 50 mcg/0.25mL dose 03/07/2020 completed Diamond walton [facility] 01/01/2021 11:54:06 COVID-19, mRNA, LNP-S, PF, 100 mcg/0.5mL dose or 50 mcg/0.25mL dose 04/07/2020 completed Diamond walton [facility] 01/01/2021 11:54:09 COVID-19, mRNA, LNP-S, PF, 100 mcg/0.5mL dose or 50 mcg/0.25mL dose 12/27/2020 [facility] 12:01:07 Past Encounters Encounter ID Performer Location Encounter Start Date Encounter Closed Date Diagnosis/Indication Diagnosis SNOMED-CT Code Diagnosis ICD10 Code [id number] Thomas Perdomo MD [address] [address] 06/30/2018 11:23:20 06/30/2018 12:08:52 Synovitis 867132074 M65.161 [id number] YG ZAVALA [address] [address] 07/28/2018 10:36:11 07/28/2018 12:19:19 Osteoarthritis 323004917 M17.11 [id number] YG ZAVALA [address] [address] 09/01/2018 11:54:40 09/01/2018 14:48:09 Synovitis 561581792 M65.161 [id number] YG ZAVALA [place] [facility] [address] [address] 11/26/2018 14:35:16 11/26/2018 15:33:34 Osteoarthritis 351334331 M17.11 M17.12 [id number] YG ZAVALA [place] [facility] [address] [place] [address] 01/01/2021 11:24:54 01/01/2021 12:20:46 Knee joint painful on movement 537897508 M25.561 [id number] YG ZAVALA [facility] [address] [place] [address] 01/16/2021 08:05:43 01/22/2021 13:23:05 Health Concerns Section Related Observation LastModified by Organization Detai ls LastModified Time None Recorded Concern Status LastModified by Organization Details LastModified Time None Recorded Advance Directives Directive None Recorded Payers Encounter Date Sequence Insurance Name Policy Number Policy Watts Covered Member ID Watts Member ID Guarantor Name 07/28/2018 1 [facility] [facility] [id number] 6 Lizzie Couch [place] [id number] Lizzie [place] 09/01/2018 1 [facility] [facility] [id number] 6 Lizzie Couch Thomas [id number] Lizzie [place] 11/26/2018 1 [facility] [facility] [id number] 6 [employer]izz[email or web address] [id number] Lizzie [place] 01/01/2021 1 [facility] [facility] [id number] 6 Lizzie [email or web address] [id number] Lizzie [place] 01/16/2021 1 [facility] [facility] [id number] 6 Lizzie Couch Thomas [id number] [facility] Notes Date Note Type Note Provider Name and Address Organization Details Recorded Time 07/28/2018 text/html DX: Status post right knee PVNS excision on 07/15/18. HX: Lizzie is actually doing quite well. The pathology has come back confirming that she has PVNS. She does have a fair amount of arthritis in that knee, more so than we would have liked to see in a 48-year-old. She has done one session of physical therapy. She has returned to the gym, but she really does like running and [employer] activities, and I talked to her about the implications of doing those in the future. She will do a little more physical therapy, get her range of motion going. YG ZAVALA [address] [place] [address], [place], [address], [facility] 07/30/2018 09:25:13 09/01/2018 text/html DIAGNOSIS: Cj prabhakar post right knee synovectomy for PVNS on 07/15/18. HISTORY: Lizzie is now 6 weeks status post surgery. She is actually doing fairly well. She has gone back to doing some of her CrossFit. She is pleased with how her knee is progressing, although it does have some pain and she is a little concerned about how much she can push this. YG ZAVALA [address] [place], [address], [facility] 09/04/2018 07:27:45 11/26/2018 text/html 48 year old fema le here today for bilateral knee pain. Status post right knee PVNS excision on 07/15/18 which she has fully recovered from and felt great. Starting late September both knees hurt all the time. She is very active she does workout, and does cross-fit. She has since cut back on her weight lifting and impact activity. She states her entire knee will hurt, when she is squatting or in a lunge her right knee is worse. Up and down stairs and getting up from a chair are the worst activites. She states the pain is worse as the day goes on. Her pain will wake her up in the middle of the night. Denies catching and locking. States her knees will crack, but it is not painful. She has had the feeling that her knees will give out on her. She has tried taking Naproxin, she states the pain has gotten so bad she has started taken her post op pain medication. YG ZAVALA [address] [place], [address], [facility] 11/30/2018 08:42:40 01/01/2021 text/html DX: Right knee p ain and swelling, with a history of PVNS.HX: On 07/15/2018 Lizzie had an arthroscopic chondroplasty of her patella and medial femoral condyle as well as a PVNS excision. She was doing well until about 10 or 12 weeks ago when she started getting increasing pain and swelling in her right knee. She has been trying to ignore it, but it has been getting progressively worse and giving-way, with a sense of instability. She comes today hoping this is not a recurrence of her PVNS, but also wondering if it potentially is arthritis. YG ZAVALA [address] [facility], [place], [address], [facility] 01/05/2021 08:34:26 01/16/2021 text/html COVID-19 STATEME NT: This visit was conducted in real-time via interactive TeleHealth audiovisual using [employer] due to the National Emergency and ongoing COVID-19 Pandemic restrictions on movement. Ms. Guzman was identified by name and date of , and consented to this visit conducted as a TeleHealth visit. She was in [place] and I was in my office in [place].DX: Right knee osteoarthrosis.HX: Lizzie is a 50-year-old on whom 2?? years ago we did a right knee arthroscopy for a mass that turned to be PVNS. She has had some recurrent pain, instability, and difficulty going up and down the stairs, and it felt a lot to her like the PVNS from 2?? years ago. YG ZAVALA [address] [facility], [place], [address], [facility] 01/19/2021 09:39:47 OBGyn Episode No OBEpisode recorded.
== END 2024-01-22 09:48 | disposition home or self-care (01) ==
PROVIDERS: Physician Assistant Medical; Emergency Provider Student in an Organized Health Care Education/Training Program; PCP Registered Nurse
DX: N39.0 Urinary tract infection, site not specified (principal); N32.89 Other specified disorders of bladder; R11.0 Nausea; Z79.899 Other long term (current) drug therapy
CPT/HCPCS: 36415; 80053; 81001; 83735; 85025; 87086; 87088; 87186; 96360; 99284